=== PATIENT | female | born 1955 | race Caucasian/White ===

== ENCOUNTER 2016-09-02 05:31 | Inpatient (IN) | payer OTHER ==
[2016-09-01 17:05] VITALS: BMI 47.7
[2016-09-02] VITALS (11 sets, daily range): BP systolic 98–133; BP diastolic 56–86; PULSE 70–88; RESP 12–21; Ht 162.6 cm; Wt 56.1 kg
[~2016-09-02] VITALS: Ht 162.6 cm; Wt 56.1 kg
[~2016-09-02 05:31] MED LIST: ACET500C5 PO; IBUP-1542 PO; TIZA2TAB PO; [UNRECOGNIZED DRUG - CODE] BC
[2016-09-02] MEDS ORDERED: CEFAZOLIN 2 GM/50 ML (PMX) 50 ML IVPB ONE (06:46)
--- NOTE | 2016-09-02 07:38 | HPN ---
Date/Time of Note Date/Time of Note DATE: 09/02/16 TIME: 07:38 Interval H&P Admission Note Pt. seen H&P reviewed: No system changes BEN NICHOLE MD Sep 02, 2016 07:38
[2016-09-02] MEDS ORDERED: BUPIVACAINE 0.25% (MPF) 30 ML INJ ONE (07:50)
[2016-09-02] MEDS ORDERED: CA CHLORIDE 10% 10 ML SYRINGE ONE (07:50)
[2016-09-02] MEDS ORDERED: BUPIVACAINE 0.25%/EPI (SDV) 30 ML INJ ONE (07:50)
[2016-09-02] MEDS ORDERED: POLYMYXIN/BACITRACIN 1L IRRIG ONE (07:50)
[2016-09-02] MEDS ORDERED: THROMBIN 5000 UNIT VIAL ONE ×5 (07:50→12:05)
[2016-09-02] MEDS ORDERED: FENTAnyl 50 MCG/ML VIAL ONE ×3 (08:17→11:36)
[2016-09-02] MEDS ORDERED: MIDAZOLAM 1 MG/ML 2 ML INJ ONE ×2 (08:17→14:45)
[2016-09-02] MEDS ORDERED: HEPARIN 1000 UNITS/ML 10 ML INJ ONE (08:17)
[2016-09-02] MEDS ORDERED: CEFAZOLIN 1 GM INJ ONE ×3 (08:36→11:01)
[2016-09-02] MEDS ORDERED: BUPIVACAINE 0.25%/EPI (SDV) 30 ML INJ INJ ONE (08:52)
[2016-09-02] MEDS ORDERED: NEOSTIGMINE 3 MG/3 ML SYRINGE ONE (09:01)
[2016-09-02] MEDS ORDERED: ROCURONIUM 50 MG INJ ONE (09:01)
[2016-09-02] MEDS ORDERED: SUCCINYLCHOLINE CHLORIDE 100 MG/5 ML SYG IV ONE (09:01)
[2016-09-02] MEDS ORDERED: PROPOFOL 40 ML ONE (09:01)
[2016-09-02] MEDS ORDERED: GLYCOPYRROLATE 1 MG INJ ONE (09:02)
[2016-09-02] MEDS ORDERED: LIDOCAINE 2% (SDV) 5 ML INJ ONE (09:02)
[2016-09-02] MEDS ORDERED: HEMOSTATIC MATRIX SYG ZFS ONE ×3 (09:12→10:52)
[2016-09-02] MEDS ORDERED: THROMBIN 5000 UNIT VIAL TOP ONE ×3 (09:12→10:52)
[2016-09-02] MEDS ORDERED: MEPERIDINE 25 MG INJ IV PRN ×2 (09:30→13:30)
[2016-09-02] MEDS ORDERED: HYDROmorphONE (0.2 MG/ML) 10ML SYG IV PRN ×6 (09:30→13:30)
[2016-09-02] MEDS ORDERED: ALBUTEROL 0.5% (NEB) 2.5 MG/0.5 ML AMP INH ONE ×2 (09:30→13:30)
[2016-09-02] MEDS ORDERED: DIPHENHYDRAMINE 50 MG INJ IV PRN ×2 (09:30→13:30)
[2016-09-02] MEDS ORDERED: FENTAnyl 50 MCG/ML VIAL IV PRN ×3 (09:30→13:30)
[2016-09-02] MEDS ORDERED: METOCLOPRAMIDE 10 MG INJ IV PRN ×2 (09:30→13:30)
[2016-09-02] MEDS ORDERED: ONDANSETRON 4 MG INJ IV PRN ×3 (09:30→13:30)
[2016-09-02] MEDS ORDERED: BUPIVACAINE 0.25% (MPF) 10 ML 10 ML VIAL ONE (11:35)
[2016-09-02] MEDS ORDERED: IOHEXOL 300MG/ML 30 ML BTL ONE (11:36)
[2016-09-02] MEDS ORDERED: IOHEXOL 300MG/ML 30 ML BTL INJ ONE (12:17)
[2016-09-02] MEDS ORDERED: BUPIVACAINE 0.25% (MPF) 30 ML INJ INJ ONE (12:22)
[2016-09-02] MEDS ORDERED: PROCHLORPERAZINE 10 MG INJ IV PRN (12:30)
[2016-09-02] MEDS ORDERED: HYDROmorphONE 0.2 MG/ML PCA IV SCH ×2 (12:30→16:30)
[2016-09-02] MEDS ORDERED: MAGNESIUM HYDROXIDE 30ML CUP PO PRN (12:30)
[2016-09-02] MEDS ORDERED: CEPASTAT LOZENGE MT PRN (12:30)
[2016-09-02] MEDS ORDERED: BISACODYL 10 MG SUPP PR PRN (12:30)
[2016-09-02] MEDS ORDERED: NALOXONE (0.4 MG/ML) INJ IV PRN (12:30)
--- NOTE | 2016-09-02 13:06 | OPPN ---
Date/Time of Note Date/Time of Note DATE: 09/02/16 TIME: 13:04 Operative/Procedure Note Pre-Operative Diagnosis L4-S1 stenosis and degen. disc disease Post-Operative Diagnosis same Procedure L4-S1 posterior central decompression and instrumented fusion Surgeon: BEN NICHOLE MD Anesthesiologist: CHANTALE LOVE Findings see note Blood Usage/Administration cell saver 300cc Implants/Grafts ortho fix Benvenue Izabella [place] PRP Estimated blood loss: 250 - 300 ml's Drains lumbar hemovac Specimens L4-S1 disc Complications: None Anesthesia type: general BEN NICHOLE MD Sep 02, 2016 13:06
--- NOTE | 2016-09-02 14:14 | RADRPT ---
PROCEDURE: Intraoperative imaging of the lumbar spine with fluoroscopy. CLINICAL INDICATION: Back pain. Intraoperative. TECHNIQUE: 25 images of the lumbar spine were obtained in the operating room with an image intensi fier. No radiologist was in attendance. 45.6 seconds of fluoroscopy time was used. COMPARISON: No prior study is available for comparison. FINDINGS: For the purposes of this report, the last apparent true disc level is considered to be L5-S1. Based on this, final images demonstrate posterior fusion with pedicle screws and connecting rods at L4, L 5, and S1. Intervertebral cages are present at L4-5 and L5-S1. IMPRESSION: 1. Intraoperative imaging of the lumbar spine. RPTAT: QQ .Ghanshyam Raphael MD, MD Date Time Electronically viewed and signed by .Ghanshyam Raphael MD, on 09/02/2016 14:14 .R/
--- NOTE | 2016-09-02 14:22 | OPR ---
DATE OF OPERATION: 09/02/2016 PREOPERATIVE DIAGNOSIS: L4-5 and L5-S1 severe central stenosis with degenerative disk disease and a nterolisthesis at L4-5 and retrolisthesis at L5-S1. POSTOPERATIVE DIAGNOSIS: L4-5 and L5-S1 severe central stenosis with degenerative disk disease and anterolisthesis at L4-5 and retrolisthesis at L5-S1. PROCEDURES PERFORMED: 1. L4-L5 central decompressive laminectomy with decompression of the exiting L4 traversing L5 nerve root. 2. L5-S1 central decompressive laminectomy with decompression of the exiting L5 and traversing S1 n erve root. 3. Removal of the L4 and L5 spinous processes for the central decompressive laminectomy. 4. Complete facetectomy and foraminotomy at L4-5 and L5-S1 above and beyond the need for fusion for the purpose of decompression and diskectomy. 5. End plate preparation at L4-5 and L5-S1 for fusion. 6. Placement of interbody Benvenue Izabella cages at L4-5 and L5-S1. 7. Placement of interbody biomechanical device with bone graft using Fibergraft. 8. Both levels L4-5 and L5-S1 were fitted with Benvenue Izabella interbody cages. 9. Placement of pedicle screws at L4, L5, and S1 bilaterally under direct visualization. 10. Placement of pre-lordotic rods from L4-S1. 11. Cross connector of the parallel rods. 12. Epidural pain medication with epidural catheter with 4 mL of 0.25% Marcaine and 100 mcg of fent anyl, catheter removed. 13. Epidurogram after catheter placed for epidural placement under lateral localizing film, verifyi ng proper position after Isovue installation and removal of catheter after injection of medication. 14. Bilateral posterolateral bone grafting in the most posterolateral gutters after high-speed bur decortication. 15. Use of intraoperative fluoroscopy for localization and placement of instrumentation and epiduro gram. 16. Use of intraoperative microscope for microdissection. 17. Use of intraoperative fluoroscopy. 18. Use of intraoperative neuromonitoring for bilateral upper and lower extremities as well as lumb ar nerve roots and spinal cord during the entire surgical procedure with SSEPs, MEPs, and EMGs. 19. Placement of subfascial Hemovac drain. 20. Placement of Ramos catheter. SURGEON: Al Mahmood MD FISH AGENT: BRIGITTE Desouza ANESTHESIOLOGIST: Don Michael MD FINDINGS: At the start of surgical procedures, it was noted that the patient had nerve root signals down in amplitude at the left L4 down 20%, right L4 down 50%, right L5 down 30%, left S1 down 30%, right S1 down 50% and returned back to normal symmetric to the contralateral side at the conclusion of the procedure. BLOOD USAGE: CellSaver retrieved 300 mL which was processed and reinfused. IMPLANTS: Ortho fix screws and rods, Benvenue Izabella cages with a 12 mm lordotic at the L5-S1 level a nd a 10 mm straight cage at the L4-5 level. NuShield amniotic barrier and platelet-rich plasma, ort ho OsteoSponge, and Fibergraft bone graft. ESTIMATED BLOOD LOSS: Approximately 300 mL. DRAINS: Lumbar Hemovac. SPECIMENS: L4-L5 disk material and L5-S1 disk material sent together. COMPLICATIONS: None. ANESTHESIA: General. BRIEF PREOPERATIVE HISTORY: The patient is a 60-year-old female who presented with significant symp toms of bilateral lower extremity radiating pain, neuro claudication, difficulty ambulating, and low back pain. The patient had failed conservative management and was indicated for surgery as stated above. All risks, benefits and alternatives of surgical procedure was discussed with her at length. The patient understood the plan and consented to surgery as stated above. OPERATION DETAIL: The patient brought to the operating room, placed under anesthesia by Dr. Lilian woods, given 2 grams of Ancef. The patient was then turned prone on a Fantasma frame and all bony promin ences were appropriately padded. Lumbar Fantasma frame was elevated to decrease the lumbar lordotic c urvature. An incision line was marked out on the skin, and after the patient was prepped and draped in the usual sterile fashion, we placed 2 spinal needles for AP and lateral localization for the L4 -5 and L5-S1 level procedure. We started with removal of spinous processes of L4 and L5 after verifying proper level, and then per formed bilateral decompressive laminectomies and a central decompressive laminectomy for removal of compression of the thecal sac at L4-5 and L5-S1 as well as the exiting nerve roots at L4, traversing nerve root at L5, and at the L5-S1 decompression exiting L5 and traversing S1 nerve root. Once completed with our central decompressive laminectomy, we performed facetectomies and foraminoto mies at L4-5 and L5-S1 on the right side above and beyond the need for fusion for the purpose of dec ompression of the nerve roots. Once this was done, we did complete diskectomies at L4-5 and L5-S1 f or purpose of fusion. Endplates were appropriately decorticated. Endplate preparation and placemen t of Benvenue Izabella cages of 10 mm at the L4-5 level and 12 mm lordotic at the L5-S1 level and filled with Fibergraft bone graft. This was done under x-ray guidance and proper templating. Once completed with our placement of interbody cages, we started placing our screws at L4, L5, and S 1 bilaterally measuring 5.5 x 35 mm and at some levels only 30 mm in length. Once completed, we stimulated the screws verifying proper placement and no impingement on the jean sing and exiting nerve roots. Once concluded with placement of the screws, we verified proper position on AP and lateral fluorosco py and then placed pre-lordotic rods measuring 65 mm bilaterally and his cross connector that was to rqued to appropriate strength as well as the screws torqued to the appropriate strength for the end caps holding the rods. Once concluded with the procedure, we placed an epidural catheter, injected with Isovue on a lateral localizing film verifying proper position of the epidural catheter and epidurogram injected with 4 mL of 0.25% Marcaine and 100 mcg of fentanyl and removed the catheter. We placed bilateral posterolateral bone grafting after high-speed bur decortication of the transvers e processes with OsteoSponge. Platelet-rich plasma was achieved from the bone marrow aspiration from the iliac crest and that was used with bone graft was used in the posterolateral gutters as well as within the interbody space. Once concluded with placement of instrumentation and verifying proper position, we copiously irrigat ed and placed a NuShield barrier on the thecal sac, and then placed a subfascial Hemovac drain and s ecured down with the 2-0 nylon. We verified proper position on the AP and lateral fluoroscopy for a ll the implants, and we began with our closure over a Hemovac drain. We closed the fascia with #1 V icryl, 2-0 Vicryl for the subcutaneous skin, and running 4-0 Monocryl with the Dermabond and clean a nd dry dressing placed over the incision line. The patient was turned supine onto her hospital bed, taken to recovery room in stable condition, mov ing her lower extremities, and will be transferred to the floor once stable and admitted for postop pain control, physical therapy, antibiotics, and discharged either home or to a nursing facility whe n stable. Dictated By: AL GARCIA/LESLYE Conf#: [id number] DID#: [id number]
[2016-09-02] MEDS: DIPHENHYDRAMINE 50 MG INJ IV PRN ×2 (14:25→23:00)
[2016-09-02] MEDS ORDERED: DIPHENHYDRAMINE 50 MG INJ IV ONE (14:30)
[2016-09-02] MEDS: CEFAZOLIN 1 GM/50 ML (PMX) 50 ML IVPB SCH ×2 (14:31→19:36)
[2016-09-02] MEDS ORDERED: MIDAZOLAM 1 MG/ML 2 ML INJ IV PRN (15:00)
[2016-09-02] MEDS: CYCLOBENZAPRINE 10 MG TAB PO PRN (15:38)
--- NOTE | 2016-09-02 15:56 | CONS ---
DATE OF ADMISSION: 09/02/2016 DATE OF CONSULTATION: 09/02/2016 REQUESTING PHYSICIAN: BEN NICHOLE MD. REASON FOR CONSULTATION: Medical management. HISTORY OF PRESENT ILLNESS: This is a 60-year-old female with past medical history of COPD, nicotin e dependency, hysterectomy and foreign body removal from her wrist who presented with significant bi lateral lower extremity radiating pain neural claudication and difficulty ambulating lower back. Th e patient has failed conservative management and was indicated for surgery as per orthopedic surgeon today on 09/02/2016. The patient was admitted to [facility] for elective L4-L5 c entral decompressive laminectomy with decompression of the exiting L5 nerve root. The patient guru ated the procedure well and was taken to recovery room, although at this time, the patient continues to have chills and tremors. She denies any fever, chills, weight gain, weight loss, anorexia. No chest pain, palpitations, edema, orthopnea. No change in visual acuity, diplopia or photophobia. N o abdominal pain, nausea, vomiting, diarrhea. Patient states that this has occurred to her before w hen she has received Reglan, although she has never received Reglan during this course of hospitaliz ation or prior to surgery. The patient denies having any other discomfort. PAST MEDICAL AND SURGICAL HISTORY: As above per HPI. MEDICATIONS: 1. Tylenol. 2. ____ 3. ____ 4. Tizanidine. ALLERGIES: GABAPENTIN AND REGLAN. SOCIAL HISTORY: Positive for history of smoking 1 to 2 cigarettes per day. She used to smoke half pack a day. No alcohol, no illicit drugs. REVIEW OF SYSTEMS: As above per HPI, otherwise 12 review of systems has been found to be negative. PHYSICAL EXAMINATION: VITAL SIGNS: Temperature 98.1, pulse 18, respirations 133/85, oxygen saturation 99% on room air. GENERAL APPEARANCE: Patient is lying in the bed comfortably without any acute distress. She is perry ke, alert, oriented. She is able to answer my questions properly. She is having some spasticity an d essential tremors. EYES AND ENT: Conjunctivae and lids are normal. Pupils are normal. Extraocular normal. Hearing g rossly normal. Lips and tongue are normal. Oral mucosa is moist. NECK: Supple. Trachea is midline. No lymphadenopathy. RESPIRATORY: Effort is normal. Clear to auscultate bilaterally. CARDIOVASCULAR: Normal S1, S2. Regular rhythm and rate. No murmur, no bruits, no edema. Peripher al pulses and radial pulses palpable. Cap refill is normal. CHEST: Normal expansion of thorax during inspiration. GASTROINTESTINAL: Abdomen is soft, nontender, not distended. Bowel sounds present. No guarding, n o rebound. GENITOURINARY: A Ramos in place. Lumbosacral surgical site is dry and clean. There is a drain in place. MUSCULOSKELETAL: Upper and lower extremities within normal limits. Full range of motion. NEUROLOGIC: Cranial nerves II through XII are grossly intact. PSYCHIATRIC: She is awake, alert, oriented. LABORATORY WORK AND IMAGING: Pending. Today labs from patient: Hematocrit 43.8, hemoglobin 14.9, M CV 100.9, WBC 8.2, potassium 4.2, sodium 138, BUN 11, glucose 70, GFR 112, creatinine 0.67, chloride 103, bicarbonate 21, calcium 9.1. ASSESSMENT AND PLAN: 1. L4-L5 and L5-S1 severe central stenosis with degenerative disk disease and anterolisthesis at L4 -L5 and retrolisthesis at L5-S1. The patient is status post L4-L5, central decompressive laminectom y at L5-S1. 2. Central decompressive laminectomy with decompression. Continue postop care. Continue pain medi cation, PT, OT evaluate and treat. 3. L5-S1 central decompressive laminectomy with decompression. Continue post-surgical care. Bet[place] nue pain medication. Continue drain care. PT, OT evaluate and treat. 3. History of chronic obstructive pulmonary disease. The patient will be placed on breathing treat ment. 4. History of nicotine dependency on nicotine patch. 5. Specificity: Restart patient's home medication: Tizanidine. 6. For deep venous thrombosis prophylaxis on sequential compression devices. 7. For gastrointestinal prophylaxis on proton pump inhibitor. Dictated By: LUCILA SANDERS/LESLYE Conf#: [id number] DID#: [id number]
[2016-09-02] MEDS: D5W-0.45 NACL + KCL 20 MEQ 1,000 ML IV SCH (16:39)
[2016-09-02] MEDS: DIAZEPAM 5 MG TAB PO PRN (16:39)
[2016-09-02 17:57] LABS: ADD SCAN DIFF NO
[2016-09-02 17:59] LABS: BASOPHILS % 0.1 % (0.0-2.0); EOSINOPHILS % 0.5 % (0.0-7.0); HEMATOCRIT 33.6 % (37.0-47.0); HEMOGLOBIN 11.6 g/dl (12.0-16.0); LYMPHOCYTES # 1.5 10^3/ul (0.8-2.9); LYMPHOCYTES % 17.5 % (15.0-51.0); MEAN CORPUSCULAR HEMOGLOBIN 34.8 pg (29.0-33.0); MEAN CORPUSCULAR HGB CONC 34.5 g/dl (32.0-37.0); MEAN CORPUSCULAR VOLUME 100.9 fl (82.0-101.0); MEAN PLATELET VOLUME 9.7 fl (7.4-10.4); MONOCYTE # 0.6 10^3/ul (0.3-0.9); MONOCYTES % 6.9 % (0.0-11.0); NEUTROPHIL # 6.4 10^3/ul (1.6-7.5); NEUTROPHILS % 74.2 % (39.0-77.0); PLATELET COUNT 175 10^3/UL (140-415); RED BLOOD COUNT 3.33 10^6/ul (4.20-5.40); RED CELL DISTRIBUTION WIDTH 11.8 % (11.5-14.5); WHITE BLOOD COUNT 8.6 10^3/ul (4.8-10.8)
[2016-09-02] MEDS: HYDROmorphONE 1 MG/ML SYG IV PRN ×2 (18:11→22:40)
[2016-09-02 18:19] LABS: POTASSIUM 3.8 mmol/L (3.5-5.1)
[2016-09-02 18:22] LABS: CREATININE 0.67 mg/dl (0.44-1.00)
[2016-09-02 18:23] LABS: CALCIUM 8.3 mg/dl (8.4-10.2)
[2016-09-02] MEDS: TIZANIDINE 2 MG TAB PO PRN (21:08)
[2016-09-02] MEDS: DOCUSATE SODIUM 100 MG CAP PO SCH (21:08)
[2016-09-03 00:03] VITALS: BP 103/55; RESP 24
[2016-09-03] MEDS: CYCLOBENZAPRINE 10 MG TAB PO PRN (00:07)
[2016-09-03] MEDS: DIAZEPAM 5 MG TAB PO PRN ×3 (00:43→17:37)
[2016-09-03] MEDS: HYDROmorphONE 1 MG/ML SYG IV PRN ×4 (02:09→22:51)
[2016-09-03] MEDS: D5W-0.45 NACL + KCL 20 MEQ 1,000 ML IV SCH ×2 (02:09→17:06)
[2016-09-03] MEDS: CEFAZOLIN 1 GM/50 ML (PMX) 50 ML IVPB SCH (04:15)
[2016-09-03] MEDS: TIZANIDINE 2 MG TAB PO PRN ×2 (04:16→15:46)
[2016-09-03 05:12] LABS: ADD SCAN DIFF NO; BASOPHILS % 0.2 % (0.0-2.0); EOSINOPHILS # 0.3 10^3/ul (0.0-0.5); EOSINOPHILS % 3.4 % (0.0-7.0); HEMATOCRIT 34.2 % (37.0-47.0); HEMOGLOBIN 11.4 g/dl (12.0-16.0); LYMPHOCYTES # 2.2 10^3/ul (0.8-2.9); LYMPHOCYTES % 24.5 % (15.0-51.0); MEAN CORPUSCULAR HEMOGLOBIN 34.3 pg (29.0-33.0); MEAN CORPUSCULAR HGB CONC 33.3 g/dl (32.0-37.0); MEAN PLATELET VOLUME 10.5 fl (7.4-10.4); MONOCYTE # 0.9 10^3/ul (0.3-0.9); MONOCYTES % 10.4 % (0.0-11.0); NEUTROPHIL # 5.4 10^3/ul (1.6-7.5); PLATELET COUNT 176 10^3/UL (140-415); RED BLOOD COUNT 3.32 10^6/ul (4.20-5.40); RED CELL DISTRIBUTION WIDTH 11.9 % (11.5-14.5); WHITE BLOOD COUNT 8.8 10^3/ul (4.8-10.8)
[2016-09-03] MEDS: DIPHENHYDRAMINE 50 MG INJ IV PRN (05:23)
[2016-09-03 05:32] LABS: CREATININE 0.6 mg/dl (0.44-1.00)
[2016-09-03 05:33] LABS: CALCIUM 8.1 mg/dl (8.4-10.2); MAGNESIUM 1.9 mg/dl (1.7-2.5)
[2016-09-03 05:54] VITALS: BP 112/58; PULSE 95; RESP 18
[2016-09-03] MEDS ORDERED: PANTOPRAZOLE 40 MG INJ IV SCH (06:00)
[2016-09-03 07:48] VITALS: BP 95/53; RESP 18
[2016-09-03] MEDS: DOCUSATE SODIUM 100 MG CAP PO SCH ×2 (08:57→20:24)
[2016-09-03] MEDS: NICOTINE (14 MG/24 HR) PATCH TRANSDERM SCH (09:00)
[2016-09-03] MEDS ORDERED: HYDROCODONE/APAP (5/325) TAB PO PRN ×2 (09:00)
--- NOTE | 2016-09-03 10:48 | PN ---
Date/Time of Note Date/Time of Note DATE: 09/03/16 TIME: 10:43 Assessment/Plan VTE Prophylaxis VTE Prophylaxis Intervention: SCD's Lines/Catheters IV Catheter Type (from Nrs): Peripheral IV Urinary Cath still in place: No Assessment/Plan Chief Complaint/Hosp Course ASSESSMENT AND PLAN: 1. L4-L5 and L5-S1 severe central stenosis with degenerative disk disease . The patient is status post L4-L5 & L5-S1 Central decompressive laminectomy with decompression Continue postop care. Continue pain medication, PT, OT evaluate and treat. 2. History of chronic obstructive pulmonary disease. The patient will be placed on breathing treatment. 3. History of nicotine dependency on nicotine patch. 4. Specificity: Restart patient's home medication: Continue tizanidine and Valium -. For deep venous thrombosis prophylaxis on sequential compression devices. - For gastrointestinal prophylaxis on Pepcid We will continue monitor patient closely for recommendation management treatment as clinical course Disposition as per orthopedic surgeon Problems: Subjective 24 Hr Interval Summary Free Text/Dictation No acute event since this morning Patient denies of having any tremors or muscle spasm Complains of having low back pain Tolerating oral intake Exam/Review of Systems Vital Signs Vitals Vital Signs Date Time Temp Pulse Resp B/P Pulse Ox O2 Delivery O2 Flow Rate FiO2 09/03/16 07:48 98.9 85 18 95/53 100 09/03/16 05:54 Nasal Cannula 2.0 Intake and Output 09/02/16 09/02/16 09/03/16 15:00 23:00 07:00 Intake Total 1000 ml 1170 ml Output Total 470 ml 535 ml 1230 ml Balance 530 ml -535 ml -60 ml Exam General: The patient is well-developed, Not in acute distress. HEENT: Atraumatic, normocephalic. The pupils are equal and round . Neck: Supple with full range of motion. Chest: Normal expansion of the thorax during inspiration Lungs: Clear to auscultation bilaterally Heart: Normal S1-S2, Regular rhythm and rate. Abdomen: Soft , nontender, nondistended , bowel sounds are present. Extremities: Normal to inspection, no edema no cyanosis Neurologic: Normal mental status,The patient is awake, alert and oriented . Lumbosacral: Surgical site is dry and clean drain in place, no evidence of hematoma Results Result Diagram: 09/03/1642009/03/16420 Results 24 hrs Laboratory Tests Test 09/02/16 17:50 09/03/16 04:21 Anion Gap 11 13 Basophils # 0.0 0.0 Basophils % 0.1 0.2 Blood Urea Nitrogen 11 8 Calcium Level 8.3 L 8.1 L Carbon Dioxide Level 28 25 Chloride Level 105 104 Creatinine 0.67 0.60 Eosinophils # 0.0 0.3 Eosinophils % 0.5 3.4 Glucose Level 120 87 Hematocrit 33.6 L 34.2 L Hemoglobin 11.6 L 11.4 L Lymphocytes # 1.5 2.2 Lymphocytes % 17.5 24.5 Mean Corpuscular Hemoglobin 34.8 H 34.3 H Mean Corpuscular Hemoglobin Concent 34.5 33.3 Mean Corpuscular Volume 100.9 103.0 H Mean Platelet Volume 9.7 10.5 H Monocytes # 0.6 0.9 Monocytes % 6.9 10.4 Neutrophils # 6.4 5.4 Neutrophils % 74.2 61.0 Nucleated Red Blood Cells # 0.0 0.0 Nucleated Red Blood Cells % 0.0 0.0 Platelet Count 175 176 Potassium Level 3.8 4.0 Red Blood Count 3.33 L 3.32 L Red Cell Distribution Width 11.8 11.9 Sodium Level 140 138 White Blood Count 8.6 8.8 Magnesium Level 1.9 Medications Medications Current Medications Potassium Chloride/Dextrose/ Sod Cl (D5-1/2ns + KCl 20 Meq) 1,000 ml @ 70 mls/ hr [id number] IV Last administered on 09/03/16 02:09; Admin Dose 70 MLS/HR; Start 09/02/16 at 12:30 Acetaminophen/ Hydrocodone Bitart ([place] (5/325)) 1 tab Q4H PRN PO PAIN LEVEL 1 -5; Start 09/03/16 at 09:00 Acetaminophen/ Hydrocodone Bitart ([place] (5/325)) 2 tab Q4H PRN PO PAIN LEVEL 6 -10; Start 09/03/16 at 09:00 Hydromorphone HCl (Dilaudid) 0.5 mg Q3 PRN IV BREAKTHROUGH PAIN Last administered on 09/03/16 06:36; Admin Dose 0.5 MG; Start 09/02/16 at 12:30 Ondansetron HCl (Zofran Inj) 4 mg Q6H PRN IV NAUSEA AND/OR VOMITING; Start 04/11 at 12:30 Prochlorperazine (Compazine Inj) 10 mg Q6H PRN IV NAUSEA AND/OR VOMITING; Start 09/02/16 at 12:30 Bisacodyl (Dulcolax Supp) 10 mg DAILY PRN IN CONSTIPATION; Start 09/02/16 at 12 :30 Docusate Sodium (Colace) 100 mg BID PO Last administered on 09/03/16 08:57; Admin Dose 100 MG; Start 09/02/16 at 21:00 Pantoprazole (Protonix Iv) 40 mg DAILY@06 IV Last administered on 09/03/16 05: 23; Admin Dose 40 MG; Start 09/03/16 at 06:00 Magnesium Hydroxide (Milk Of Mag) 30 ml HS PRN PO CONSTIPATION/DYSPEPSIA; Start 09/02/16 at 12:30 Acetaminophen (Tylenol Tab) 650 mg Q4H PRN PO POSADA OR TEMP GREATER THAN 101.3F; Start 09/02/16 at 12:30 Cyclobenzaprine HCl (Flexeril) 5 mg TID PRN PO MUSCLE SPASMS Last administered on 09/03/16 00:07; Admin Dose 5 MG; Start 09/02/16 at 12:30 Phenol (Cepastat Lozenge) 1 lozenge PRN PRN MT SORE THROAT; Start 09/02/16 at 12:30 Diphenhydramine HCl (Benadryl) 25 mg Q6H PRN IV ITCHING Last administered on 05:23; Admin Dose 25 MG; Start 09/02/16 at 12:30 Naloxone HCl (Narcan) 0.2 mg Q2M PRN IV RR 8 BREATHS/MIN OR LESS; Start at 12:30 Miscellaneous Information 1. Hold DRAPERY INSPECTOR at 1,000... DRAPERY INSPECTOR IV ; Start 09/02/16 at 08: 00 Tizanidine HCl (Zanaflex) 2 mg Q8H PRN PO SPASTICITY Last administered on 04:16; Admin Dose 2 MG; Start 09/02/16 at 12:30 Diphenhydramine HCl (Benadryl) 25 mg Q6H PRN PO ITCHING; Start 09/02/16 at 14: 30 Nicotine (Nicoderm 14 Mg/ 24hr) 1 patch DAILY TRANSDERM Last administered on 09:00; Admin Dose 1 PATCH; Start 09/03/16 at 09:00 Diazepam (Valium) 5 mg Q8H PRN PO ANXIETY Last administered on 09/03/16 08:57 ; Admin Dose 5 MG; Start 09/02/16 at 16:00 Hydromorphone HCl (Dilaudid DRAPERY INSPECTOR) DRAPERY INSPECTOR to be started in PACU Q4PCA IV Last administered on 09/03/16 00:41; Admin Dose 6 MG; Start 09/02/16 at 16:30 LUCILA TORRE MD Sep 03, 2016 10:48
--- NOTE | 2016-09-03 11:45 | PN ---
Date/Time of Note Date/Time of Note DATE: 09/03/16 TIME: 11:42 Assessment/Plan VTE Prophylaxis VTE Prophylaxis Intervention: ambulation, anti-embolic stocking VTE Contraindication Reason: bleeding Lines/Catheters IV Catheter Type (from Nrsg): Peripheral IV Urinary Cath still in place: No Assessment/Plan Assessment/Plan s/p L4-5, L5-S1 decompression and fusion Hailey started 10, 1-2 tabs Flexeril increased to 10mg PO TID DATA ENTRY ANALYST stolled SCD IS Hemovac still in H/H stable AFVSS PT for amb Brace arriving. Back pain, legs are good with motor/sensory Exam/Review of Systems Vital Signs Vitals Vital Signs Date Time Temp Pulse Resp B/P Pulse Ox O2 Delivery O2 Flow Rate FiO2 09/03/16 07:48 98.9 85 18 95/53 100 09/03/16 05:54 Nasal Cannula 2.0 Intake and Output 09/02/16 09/02/16 09/03/16 15:00 23:00 07:00 Intake Total 1000 ml 1170 ml Output Total 470 ml 535 ml 1230 ml Balance 530 ml -535 ml -60 ml Results Result Diagram: 09/03/16 0421 09/03/16 0421 Results 24 hrs Laboratory Tests Test 09/02/16 17:50 09/03/16 04:21 Anion Gap 11 13 Basophils # 0.0 0.0 Basophils % 0.1 0.2 Blood Urea Nitrogen 11 8 Calcium Level 8.3 L 8.1 L Carbon Dioxide Level 28 25 Chloride Level 105 104 Creatinine 0.67 0.60 Eosinophils # 0.0 0.3 Eosinophils % 0.5 3.4 Glucose Level 120 87 Hematocrit 33.6 L 34.2 L Hemoglobin 11.6 L 11.4 L Lymphocytes # 1.5 2.2 Lymphocytes % 17.5 24.5 Mean Corpuscular Hemoglobin 34.8 H 34.3 H Mean Corpuscular Hemoglobin Concent 34.5 33.3 Mean Corpuscular Volume 100.9 103.0 H Mean Platelet Volume 9.7 10.5 H Monocytes # 0.6 0.9 Monocytes % 6.9 10.4 Neutrophils # 6.4 5.4 Neutrophils % 74.2 61.0 Nucleated Red Blood Cells # 0.0 0.0 Nucleated Red Blood Cells % 0.0 0.0 Platelet Count 175 176 Potassium Level 3.8 4.0 Red Blood Count 3.33 L 3.32 L Red Cell Distribution Width 11.8 11.9 Sodium Level 140 138 White Blood Count 8.6 8.8 Magnesium Level 1.9 Medications Medications Current Medications Potassium Chloride/Dextrose/ Sod Cl (D5-1/2ns + KCl 20 Meq) 1,000 ml @ 70 mls/ hr [id number] IV Last administered on 09/03/16 02:09; Admin Dose 70 MLS/HR; Start 09/02/16 at 12:30 Acetaminophen/ Hydrocodone Bitart ([place] (5/325)) 1 tab Q4H PRN PO PAIN LEVEL 1 -5; Start 09/03/16 at 09:00 Acetaminophen/ Hydrocodone Bitart ([place] (5/325)) 2 tab Q4H PRN PO PAIN LEVEL 6 -10 Last administered on 09/03/16 10:47; Admin Dose 2 TAB; Start 09/03/16 at 09 :00 Hydromorphone HCl (Dilaudid) 0.5 mg Q3 PRN IV BREAKTHROUGH PAIN Last administered on 09/03/16 10:50; Admin Dose 0.5 MG; Start 09/02/16 at 12:30 Ondansetron HCl (Zofran Inj) 4 mg Q6H PRN IV NAUSEA AND/OR VOMITING; Start 04/11 at 12:30 Prochlorperazine (Compazine Inj) 10 mg Q6H PRN IV NAUSEA AND/OR VOMITING; Start 09/02/16 at 12:30 Bisacodyl (Dulcolax Supp) 10 mg DAILY PRN NE CONSTIPATION; Start 09/02/16 at 12 :30 Docusate Sodium (Colace) 100 mg BID PO Last administered on 09/03/16 08:57; Admin Dose 100 MG; Start 09/02/16 at 21:00 Magnesium Hydroxide (Milk Of Mag) 30 ml HS PRN PO CONSTIPATION/DYSPEPSIA; Start 09/02/16 at 12:30 Acetaminophen (Tylenol Tab) 650 mg Q4H PRN PO POSADA OR TEMP GREATER THAN 101.3F; Start 09/02/16 at 12:30 Cyclobenzaprine HCl (Flexeril) 5 mg TID PRN PO MUSCLE SPASMS Last administered on 09/03/16 00:07; Admin Dose 5 MG; Start 09/02/16 at 12:30 Phenol (Cepastat Lozenge) 1 lozenge PRN PRN MT SORE THROAT; Start 09/02/16 at 12:30 Naloxone HCl (Narcan) 0.2 mg Q2M PRN IV RR 8 BREATHS/MIN OR LESS; Start at 12:30 Miscellaneous Information 1. Hold DATA ENTRY ANALYST at 1,000... DATA ENTRY ANALYST IV ; Start 09/02/16 at 08: 00 Tizanidine HCl (Zanaflex) 2 mg Q8H PRN PO SPASTICITY Last administered on 04:16; Admin Dose 2 MG; Start 09/02/16 at 12:30 Diphenhydramine HCl (Benadryl) 25 mg Q6H PRN PO ITCHING; Start 09/02/16 at 14: 30 Nicotine (Nicoderm 14 Mg/ 24hr) 1 patch DAILY TRANSDERM Last administered on 09:00; Admin Dose 1 PATCH; Start 09/03/16 at 09:00 Diazepam (Valium) 5 mg Q8H PRN PO ANXIETY Last administered on 09/03/16 08:57 ; Admin Dose 5 MG; Start 09/02/16 at 16:00 Hydromorphone HCl (Dilaudid DATA ENTRY ANALYST) DATA ENTRY ANALYST to be started in PACU Q4PCA IV Last administered on 09/03/16 00:41; Admin Dose 6 MG; Start 09/02/16 at 16:30 Famotidine (Pepcid) 20 mg BID PO ; Start 09/03/16 at 21:00 BEN NICHOLE MD Sep 03, 2016 11:45
[2016-09-03] MEDS: DIPHENHYDRAMINE 25 MG CAP PO PRN ×2 (11:48→17:37)
[2016-09-03] MEDS ORDERED: VITAMIN A & D 5 GM OINT PACKET TOP ONE (11:51)
[2016-09-03] MEDS ORDERED: HYDROCODONE/APAP (10/325) TAB PO PRN (12:00)
[2016-09-03] MEDS: CYCLOBENZAPRINE 10 MG TAB PO SCH ×2 (13:17→20:24)
[2016-09-03] MEDS: HYDROCODONE/APAP (10/325) TAB PO PRN ×3 (13:18→21:21)
[2016-09-03 19:20] VITALS: BP 125/72; RESP 18
[2016-09-03] MEDS: FAMOTIDINE 20 MG TAB PO SCH (20:24)
[2016-09-04] MEDS: TIZANIDINE 2 MG TAB PO PRN ×2 (00:13→23:47)
[2016-09-04] MEDS: DIPHENHYDRAMINE 25 MG CAP PO PRN ×2 (00:13→08:38)
[2016-09-04] MEDS: HYDROCODONE/APAP (10/325) TAB PO PRN ×3 (01:24→09:38)
[2016-09-04] MEDS: DIAZEPAM 5 MG TAB PO PRN ×2 (05:36→18:37)
[2016-09-04] MEDS: D5W-0.45 NACL + KCL 20 MEQ 1,000 ML IV SCH ×2 (07:24→21:42)
[2016-09-04 08:13] VITALS: BP 105/55; RESP 20
[2016-09-04] MEDS: FAMOTIDINE 20 MG TAB PO SCH ×2 (08:37→21:04)
[2016-09-04] MEDS: DOCUSATE SODIUM 100 MG CAP PO SCH ×2 (08:37→21:04)
[2016-09-04] MEDS: CYCLOBENZAPRINE 10 MG TAB PO SCH ×3 (08:38→21:04)
[2016-09-04] MEDS: NICOTINE (14 MG/24 HR) PATCH TRANSDERM SCH (08:38)
--- NOTE | 2016-09-04 11:42 | PN ---
Date/Time of Note Date/Time of Note DATE: 09/04/16 TIME: 11:40 Assessment/Plan VTE Prophylaxis VTE Prophylaxis Intervention: SCD's Lines/Catheters IV C[facility] Type (from [facility] Saline Lock Urinary Cath still in place: No Assessment/Plan Chief Complaint/Hosp Course ASSESSMENT AND PLAN: 1. L4-L5 and L5-S1 severe central stenosis with degenerative disk disease . The patient is status post L4-L5 & L5-S1 Central decompressive laminectomy with decompression Continue postop care. Continue pain medication, PT, OT evaluate and treat. 2. History of chronic obstructive pulmonary disease. The patient will be placed on breathing treatment. 3. History of nicotine dependency on nicotine patch. 4. Specificity: Restart patient's home medication: Continue tizanidine and Valium -. For deep venous thrombosis prophylaxis on sequential compression devices. - For gastrointestinal prophylaxis on Pepcid We will continue monitor patient closely for recommendation management treatment as clinical course Disposition as per orthopedic surgeon Problems: Subjective 24 Hr Interval Summary Free Text/Dictation Denies of any chest pain or shortness of breath Continues to complain of having low back pain No weakness or numbness in lower extremity Exam/Review of Systems Vital Signs Vitals Vital Signs Date Time Temp Pulse Resp B/P Pulse Ox O2 Delivery O2 Flow Rate FiO2 09/04/16 08:13 98.4 88 20 105/55 91 09/03/16 05:54 Nasal Cannula 2.0 Intake and Output 09/03/16 09/03/16 09/04/16 15:00 23:00 07:00 Intake Total 1730 ml 1150 ml Output Total 1325 ml 1125 ml Balance 405 ml 25 ml Exam General: The patient is well-developed, Not in acute distress. HEENT: Atraumatic, normocephalic. The pupils are equal and round . Neck: Supple with full range of motion. Chest: Normal expansion of the thorax during inspiration Lungs: Clear to auscultation bilaterally Heart: Normal S1-S2, Regular rhythm and rate. Abdomen: Soft , nontender, nondistended , bowel sounds are present. Extremities: Normal to inspection, no edema no cyanosis Neurologic: Normal mental status,The patient is awake, alert and oriented . Lumbosacral: Surgical site is dry and clean, drain in place Results Result Diagram: 09/03/1642009/03/16420 Medications Medications Current Medications Potassium Chloride/Dextrose/ Sod Cl (D5-1/2ns + KCl 20 Meq) 1,000 ml @ 70 mls/ hr [id number] IV Last administered on 09/03/16 02:09; Admin Dose 70 MLS/HR; Start 09/02/16 at 12:30 Hydromorphone HCl (Dilaudid) 0.5 mg Q3 PRN IV BREAKTHROUGH PAIN Last administered on 09/03/16 22:51; Admin Dose 0.5 MG; Start 09/02/16 at 12:30 Ondansetron HCl (Zofran Inj) 4 mg Q6H PRN IV NAUSEA AND/OR VOMITING; Start 04/11 at 12:30 Prochlorperazine (Compazine Inj) 10 mg Q6H PRN IV NAUSEA AND/OR VOMITING; Start 09/02/16 at 12:30 Bisacodyl (Dulcolax Supp) 10 mg DAILY PRN [place] CONSTIPATION; Start 09/02/16 at 12 :30 Docusate Sodium (Colace) 100 mg BID PO Last administered on 09/04/16 08:37; Admin Dose 100 MG; Start 09/02/16 at 21:00 Magnesium Hydroxide (Milk Of Mag) 30 ml HS PRN PO CONSTIPATION/DYSPEPSIA; Start 09/02/16 at 12:30 Acetaminophen (Tylenol Tab) 650 mg Q4H PRN PO POSADA OR TEMP GREATER THAN 101.3F; Start 09/02/16 at 12:30 Phenol (Cepastat Lozenge) 1 lozenge PRN PRN [place] SORE THROAT; Start 09/02/16 at 12:30 Naloxone HCl (Narcan) 0.2 mg Q2M PRN IV RR 8 BREATHS/MIN OR LESS; Start at 12:30 Miscellaneous Information 1. Hold ABSTRACT MANAGER at 1,000... ABSTRACT MANAGER IV ; Start 09/02/16 at 08: 00 Tizanidine HCl (Zanaflex) 2 mg Q8H PRN PO SPASTICITY Last administered on 00:13; Admin Dose 2 MG; Start 09/02/16 at 12:30 Diphenhydramine HCl (Benadryl) 25 mg Q6H PRN PO ITCHING Last administered on 08:38; Admin Dose 25 MG; Start 09/02/16 at 14:30 Nicotine (Nicoderm 14 Mg/ 24hr) 1 patch DAILY TRANSDERM Last administered on 08:38; Admin Dose 1 PATCH; Start 09/03/16 at 09:00 Diazepam (Valium) 5 mg Q8H PRN PO ANXIETY Last administered on 09/04/16 05:36 ; Admin Dose 5 MG; Start 09/02/16 at 16:00 Hydromorphone HCl (Dilaudid ABSTRACT MANAGER) ABSTRACT MANAGER to be started in PACU Q4PCA IV Last administered on 09/03/16 00:41; Admin Dose 6 MG; Start 09/02/16 at 16:30; Status Future Hold Famotidine (Pepcid) 20 mg BID PO Last administered on 09/04/16 08:37; Admin Dose 20 MG; Start 09/03/16 at 21:00 Acetaminophen/ Hydrocodone Bitart ([place] (10/325)) 1 tab Q4H PRN PO PAIN LEVEL 4-6; Start 09/03/16 at 12:00; Status Future hold Acetaminophen/ Hydrocodone Bitart ([place] (10/325)) 2 tab Q4H PRN PO SEVERE PAIN LEVEL 7-10 Last administered on 09/04/16 09:38; Admin Dose 2 TAB; Start at 12:00; Status Future hold Cyclobenzaprine HCl (Flexeril) 10 mg TID PO Last administered on 09/04/16 08: 38; Admin Dose 10 MG; Start 09/03/16 at 13:00 LUCILA TORRE MD Sep 04, 2016 11:42
--- NOTE | 2016-09-04 12:18 | PN ---
Date/Time of Note Date/Time of Note DATE: 09/04/16 TIME: 12:15 Assessment/Plan VTE Prophylaxis VTE Prophylaxis Intervention: ambulation, anti-embolic stocking VTE Contraindication Reason: bleeding Lines/Catheters IV Catheter Type (from Nrsg): Saline Lock Urinary Cath still in place: No Assessment/Plan Chief Complaint/Hosp Course s/p lumbar fusion Problems: Assessment/Plan Pain control issue, otherwise ambulating Hemovac removed Wound CDI Evaluate for transfer to SNF, if so, transfer tomorrow [facility] [place] [facility] Ex[facility]/Review of Systems Vital Signs Vitals Vital Signs Date Time Temp Pulse Resp B/P Pulse Ox O2 Delivery O2 Flow Rate FiO2 09/04/16 08:13 98.4 88 20 105/55 91 09/03/16 05:54 Nasal Cannula 2.0 Intake and Output 09/03/16 09/03/16 09/04/16 15:00 23:00 07:00 Intake Total 1730 ml 1150 ml Output Total 1325 ml 1125 ml Balance 405 ml 25 ml Results Result Diagram: 09/03/16 0421 09/03/16 0421 Medications Medications Current Medications Potassium Chloride/Dextrose/ Sod Cl (D5-1/2ns + KCl 20 Meq) 1,000 ml @ 70 mls/ hr [id number] IV Last administered on 09/03/16 02:09; Admin Dose 70 MLS/HR; Start 09/02/16 at 12:30 Hydromorphone HCl (Dilaudid) 0.5 mg Q3 PRN IV BREAKTHROUGH PAIN Last administered on 09/03/16 22:51; Admin Dose 0.5 MG; Start 09/02/16 at 12:30 Ondansetron HCl (Zofran Inj) 4 mg Q6H PRN IV NAUSEA AND/OR VOMITING; Start 04/11 at 12:30 Prochlorperazine (Compazine Inj) 10 mg Q6H PRN IV NAUSEA AND/OR VOMITING; Start 09/02/16 at 12:30 Bisacodyl (Dulcolax Supp) 10 mg DAILY PRN [place] CONSTIPATION; Start 09/02/16 at 12 :30 Docusate Sodium (Colace) 100 mg BID PO Last administered on 09/04/16 08:37; Admin Dose 100 MG; Start 09/02/16 at 21:00 Magnesium Hydroxide (Milk Of Mag) 30 ml HS PRN PO CONSTIPATION/DYSPEPSIA; Start 09/02/16 at 12:30 Acetaminophen (Tylenol Tab) 650 mg Q4H PRN PO POSADA OR TEMP GREATER THAN 101.3F; Start 09/02/16 at 12:30 Phenol (Cepastat Lozenge) 1 lozenge PRN PRN [place] SORE THROAT; Start 09/02/16 at 12:30 Naloxone HCl (Narcan) 0.2 mg Q2M PRN IV RR 8 BREATHS/MIN OR LESS; Start at 12:30 Miscellaneous Information 1. Hold COAT CHECK ATTENDANT at 1,000... COAT CHECK ATTENDANT IV ; Start 09/02/16 at 08: 00 Tizanidine HCl (Zanaflex) 2 mg Q8H PRN PO SPASTICITY Last administered on 00:13; Admin Dose 2 MG; Start 09/02/16 at 12:30 Diphenhydramine HCl (Benadryl) 25 mg Q6H PRN PO ITCHING Last administered on 08:38; Admin Dose 25 MG; Start 09/02/16 at 14:30 Nicotine (Nicoderm 14 Mg/ 24hr) 1 patch DAILY TRANSDERM Last administered on 08:38; Admin Dose 1 PATCH; Start 09/03/16 at 09:00 Diazepam (Valium) 5 mg Q8H PRN PO ANXIETY Last administered on 09/04/16 05:36 ; Admin Dose 5 MG; Start 09/02/16 at 16:00 Hydromorphone HCl (Dilaudid COAT CHECK ATTENDANT) COAT CHECK ATTENDANT to be started in PACU Q4PCA IV Last administered on 09/03/16 00:41; Admin Dose 6 MG; Start 09/02/16 at 16:30; Status Future Hold Famotidine (Pepcid) 20 mg BID PO Last administered on 09/04/16 08:37; Admin Dose 20 MG; Start 09/03/16 at 21:00 Acetaminophen/ Hydrocodone Bitart ([place] (10/325)) 1 tab Q4H PRN PO PAIN LEVEL 4-6; Start 09/03/16 at 12:00; Status Future hold Acetaminophen/ Hydrocodone Bitart ([place] (10/325)) 2 tab Q4H PRN PO SEVERE PAIN LEVEL 7-10 Last administered on 09/04/16 09:38; Admin Dose 2 TAB; Start at 12:00; Status Future hold Cyclobenzaprine HCl (Flexeril) 10 mg TID PO Last administered on 09/04/16 08: 38; Admin Dose 10 MG; Start 09/03/16 at 13:00 BEN NICHOLE MD Sep 04, 2016 12:18
[2016-09-04] MEDS ORDERED: OXYCODONE/ACETAMINOPHEN (5/325) TAB PO PRN (12:30)
[2016-09-04] MEDS: OXYCODONE/ACETAMINOPHEN (5/325) TAB PO PRN ×3 (13:34→22:32)
[2016-09-04 20:00] VITALS: BP 114/56; RESP 21
[2016-09-04] MEDS: ACETAMINOPHEN 325 MG TAB PO PRN (23:49)
[2016-09-05] MEDS: OXYCODONE/ACETAMINOPHEN (5/325) TAB PO PRN ×3 (02:23→12:30)
[2016-09-05] MEDS: DIAZEPAM 5 MG TAB PO PRN ×2 (04:09→13:00)
[2016-09-05] MEDS: ACETAMINOPHEN 325 MG TAB PO PRN (05:31)
[2016-09-05 07:36] VITALS: BP 123/79; RESP 18
[2016-09-05] MEDS: DOCUSATE SODIUM 100 MG CAP PO SCH ×2 (09:00→20:56)
[2016-09-05] MEDS: FAMOTIDINE 20 MG TAB PO SCH ×2 (09:04→20:56)
[2016-09-05] MEDS: NICOTINE (14 MG/24 HR) PATCH TRANSDERM SCH (09:04)
[2016-09-05] MEDS: CYCLOBENZAPRINE 10 MG TAB PO SCH ×3 (09:04→20:56)
[2016-09-05] MEDS: TIZANIDINE 2 MG TAB PO PRN (09:05)
--- NOTE | 2016-09-05 10:48 | PN ---
Date/Time of Note Date/Time of Note DATE: 09/05/16 TIME: 10:46 Assessment/Plan VTE Prophylaxis VTE Prophylaxis Intervention: SCD's Lines/Catheters IV Catheter Type (from Nrs): Saline Lock Urinary Cath still in place: No Assessment/Plan Chief Complaint/Hosp Course ASSESSMENT AND PLAN: 1. L4-L5 and L5-S1 severe central stenosis with degenerative disk disease . The patient is status post L4-L5 & L5-S1 Central decompressive laminectomy with decompression Continue postop care. Continue pain medication, PT, OT evaluate and treat. 2. History of chronic obstructive pulmonary disease. The patient will be placed on breathing treatment. 3. History of nicotine dependency on nicotine patch. 4. Specificity: Restart patient's home medication: Continue tizanidine and Valium -. For deep venous thrombosis prophylaxis on sequential compression devices. - For gastrointestinal prophylaxis on Pepcid We will continue monitor patient closely for recommendation management treatment as clinical course manager [employer] consult for [facility] placement Disposition as per orthopedic surgeon Problems: Subjective 24 Hr Interval Summary Free Text/Dictation Patient continues to complain of having back pain No nausea vomiting diarrhea Tolerating oral intake Ambulating with moderate assist and walker Exam/Review of Systems Vital Signs Vitals Vital Signs Date Time Temp Pulse Resp B/P Pulse Ox O2 Delivery O2 Flow Rate FiO2 09/05/16 07:36 98.6 89 18 123/79 94 09/03/16 05:54 Nasal Cannula 2.0 Intake and Output 09/04/16 09/04/16 09/05/16 15:00 23:00 07:00 Intake Total 850 ml 550 ml Output Total 800 ml 700 ml Balance 50 ml -150 ml Exam General: The patient is well-developed, Not in acute distress. HEENT: Atraumatic, normocephalic. The pupils are equal and round . Neck: Supple with full range of motion. Chest: Normal expansion of the thorax during inspiration Lungs: Clear to auscultation bilaterally Heart: Normal S1-S2, Regular rhythm and rate. Abdomen: Soft , nontender, nondistended , bowel sounds are present. Extremities: Normal to inspection, no edema no cyanosis Neurologic: Normal mental status,The patient is awake, alert and oriented . Lumbosacral: Surgical site is dry and clean, drain has been removed Results Result Diagram: 09/03/1642009/03/16420 Medications Medications Current Medications Potassium Chloride/Dextrose/ Sod Cl (D5-1/2ns + KCl 20 Meq) 1,000 ml @ 70 mls/ hr [id number] IV Last administered on 09/03/16 02:09; Admin Dose 70 MLS/HR; Start 09/02/16 at 12:30 Hydromorphone HCl (Dilaudid) 0.5 mg Q3 PRN IV BREAKTHROUGH PAIN Last administered on 09/03/16 22:51; Admin Dose 0.5 MG; Start 09/02/16 at 12:30 Ondansetron HCl (Zofran Inj) 4 mg Q6H PRN IV NAUSEA AND/OR VOMITING; Start 04/11 at 12:30 Prochlorperazine (Compazine Inj) 10 mg Q6H PRN IV NAUSEA AND/OR VOMITING; Start 09/02/16 at 12:30 Bisacodyl (Dulcolax Supp) 10 mg DAILY PRN [place] CONSTIPATION Last administered on 09/04/16 13:35; Admin Dose 10 MG; Start 09/02/16 at 12:30 Docusate Sodium (Colace) 100 mg BID PO Last administered on 09/04/16 21:04; Admin Dose 100 MG; Start 09/02/16 at 21:00 Magnesium Hydroxide (Milk Of Mag) 30 ml HS PRN PO CONSTIPATION/DYSPEPSIA Last administered on 09/04/16 17:37; Admin Dose 30 ML; Start 09/02/16 at 12:30 Acetaminophen (Tylenol Tab) 650 mg Q4H PRN PO POSADA OR TEMP GREATER THAN 101.3F Last administered on 09/05/16 05:31; Admin Dose 650 MG; Start 09/02/16 at 12:30 Phenol (Cepastat Lozenge) 1 lozenge PRN PRN [place] SORE THROAT; Start 09/02/16 at 12:30 Naloxone HCl (Narcan) 0.2 mg Q2M PRN IV RR 8 BREATHS/MIN OR LESS; Start at 12:30 Miscellaneous Information 1. Hold HANSARD REPORTER at 1,000... HANSARD REPORTER IV ; Start 09/02/16 at 08: 00 Tizanidine HCl (Zanaflex) 2 mg Q8H PRN PO SPASTICITY Last administered on 09:05; Admin Dose 2 MG; Start 09/02/16 at 12:30 Diphenhydramine HCl (Benadryl) 25 mg Q6H PRN PO ITCHING Last administered on 08:38; Admin Dose 25 MG; Start 09/02/16 at 14:30 Nicotine (Nicoderm 14 Mg/ 24hr) 1 patch DAILY TRANSDERM Last administered on 09:04; Admin Dose 1 PATCH; Start 09/03/16 at 09:00 Diazepam (Valium) 5 mg Q8H PRN PO ANXIETY Last administered on 09/05/16 04:09 ; Admin Dose 5 MG; Start 09/02/16 at 16:00 Hydromorphone HCl (Dilaudid HANSARD REPORTER) HANSARD REPORTER to be started in PACU Q4PCA IV Last administered on 09/03/16 00:41; Admin Dose 6 MG; Start 09/02/16 at 16:30; Status Future Hold Famotidine (Pepcid) 20 mg BID PO Last administered on 09/05/16 09:04; Admin Dose 20 MG; Start 09/03/16 at 21:00 Cyclobenzaprine HCl (Flexeril) 10 mg TID PO Last administered on 09/05/16 09: 04; Admin Dose 10 MG; Start 09/03/16 at 13:00 Oxycodone/ Acetaminophen (Percocet (5/ 325)) 1 tab Q4H PRN PO PAIN LEVEL 1-5; Start 09/04/16 at 12:30 Oxycodone/ Acetaminophen (Percocet (5/ 325)) 2 tab Q4H PRN PO PAIN LEVEL 6-10 Last administered on 09/05/16 06:30; Admin Dose 2 TAB; Start 09/04/16 at 12:30 LUCILA TORRE MD Sep 05, 2016 10:48
[2016-09-05] MEDS: D5W-0.45 NACL + KCL 20 MEQ 1,000 ML IV SCH (12:00)
[2016-09-05] MEDS ORDERED: OXYCODONE/ACETAMINOPHEN (10/325) TAB PO PRN (14:00)
[2016-09-05] MEDS ORDERED: SOD CHLORIDE 0.9% 100 ML ONE (15:51)
[2016-09-05] MEDS ORDERED: IOHEXOL 300MG/ML 150 ML BTL ONE (15:52)
[2016-09-05] MEDS: HYDROmorphONE 1 MG/ML SYG IV PRN (16:17)
--- NOTE | 2016-09-05 18:09 | RADRPT ---
PROCEDURE: CT Lumbar Spine with contrast. CLINICAL INDICATION: Increasing low back pain with clinical concern for epidural collection nicole sing the thecal sac. TECHNIQUE: CT of the lumbar spine following the uneventful intravenous injection of 100 cc Omnipaq ue-300 contrast was performed. Axial images were obtained through the lumbar spine and reformatted at 2.5 mm slice thickness. Coronal and sagittal images were reformatted. The CTDIvol = 11.53 mGy an d DLP = 395.19 mGy-cm. Technical note: As the patient was unable to tolerate the supine position, scanning was performed i n a right lateral decubitus position COMPARISON: Intraoperative images dated 09/02/2016 FINDINGS: Vertebral bodies: An approximately 10-15 degrees dextroscoliosis is suggested with the apex at the L 3 level. Transpedicular screws with fusion hardware are present at L4, L5 and S1, the hardware in go od position. There is no fracture, subluxation, lytic or blastic lesion. Mild to moderate anterior spondylosis is present at L1-2, L2-3 and L3-4 Conus medularis region: Normal in attenuation and location terminating at the L1 level. T12-L1: No discogenic abnormality of significance is seen. There is no facet arthropathy. The centr al canal is patent. There is no evidence for foraminal stenosis. No pathologic enhancement is ident ified there is no evidence of epidural collection. L1-L2: Mild anterior spondylosis and mild asymmetric disk narrowing to the left is present with the 2 mm disk bulge but no protrusion. There is no facet arthropathy. The ligamentum flava are normal in thickness. The central canal is patent. There is minimal bilateral foraminal stenosis. No patholo gic enhancement is identified there is no evidence of epidural collection. L2-L3: Mild asymmetric disk space narrowing to the left with an annular disk bulge of approximately 3 mm. There is no facet arthropathy. The ligamentum flava are normal in thickness. The central wiley l is patent. There is mild left greater than right bilateral foraminal stenosis. No pathologic enh ancement is identified there is no evidence of epidural collection. L3-L4: Preservation of disk stature but an approximately 4 mm annular disk bulge asymmetric to the l eft. Severe bilateral facet arthropathy is present greater on the left with a grade 1 anterolisthesi s. The ligamentum flava are normal in thickness. The central canal is moderately narrowed, AP dimen boo of the thecal sac approximately 7 mm. There is moderate bilateral lateral recess and foraminal stenosis. No pathologic enhancement is identified there is no evidence of epidural collection. A sm all punctate focus of gas likely postoperative is seen lateral to the left facet joint L4-L5: Interbody graft is present and there are findings compatible with laminectomy. Partial right facet resection is noted, the left facet shows some vacuum phenomenon and moderate degenerative hernandez ge. There are punctate foci postoperative gas consistent with recent surgery but there is no central stenosis. No abnormal foci of enhancement are demonstrated, artifact from the surgical hardware sl ightly limits fine evaluation. There is no evidence for foraminal stenosis. L5-S1: Interbody graft is present and appears in good position. Partial right facet resection is not ed the left facet joint is moderately degenerated. Laminectomy changes are demonstrated, the transpe dicular screws appear in good position and without surrounding lucency. The central canal is patent . There is no evidence for foraminal stenosis. No pathologic enhancement is identified there is no evidence of epidural collection. Sacrum and sacroiliac joints: No abnormalities are identified, the joints are normal and symmetric. None spine related findings: Incidental splenic calcified granulomata and atherosclerotic calcificat ion of the abdominal aorta. RPTAT:HJJR IMPRESSION: 1. Laminectomy changes, interbody grafts and transpedicular fusion hardware at L4-5 and L5-S1 witho ut pathologic enhancement, epidural or paraspinal collections. The recent postoperative changes are within limits of normal for appearance. 2. Facet arthropathy, grade 1 anterolisthesis and bulging disk material asymmetric to the left at L3 -4 causes moderate central canal stenosis and left greater than right foraminal narrowing. 3. Asymmetric disk narrowing to the left and disk bulging at L2-3 with mild foraminal stenosis but no central canal narrowing. 4. Mild disk bulging asymmetric to the left at L1-2 without more than minimal foraminal stenosis. Physician Tabitha Date Time Electronically viewed and signed by Physician Tabitha on 09/05/2016 18:09 JR/
[2016-09-05] MEDS: OXYCODONE/ACETAMINOPHEN (10/325) TAB PO PRN (18:51)
[2016-09-05] MEDS: DEXAMETHASONE 10 MG/ML 1 ML INJ IV SCH (18:51)
--- NOTE | 2016-09-05 20:01 | PN ---
Date/Time of Note Date/Time of Note DATE: 09/05/16 TIME: 19:59 Assessment/Plan VTE Prophylaxis VTE Prophylaxis Intervention: ambulation, anti-embolic stocking VTE Contraindication Reason: bleeding Lines/Catheters IV Catheter Type (from Nrs): Saline Lock Urinary Cath still in place: No Assessment/Plan Chief Complaint/Hosp Course s/p lumbar fusion Problems: Assessment/Plan CT of L-spine w/IV contrast discussed with radiologist. No epidural collection. Well placed instrumentation Post-op radiculopathy most likely inflammatory Decadron 8mg IV x 1 oredered Hold transfer to SNF till tomorrow. Plan to transfer to SNF tomorrow am. Exam/Review of Systems Vital Signs Vitals Vital Signs Date Time Temp Pulse Resp B/P Pulse Ox O2 Delivery O2 Flow Rate FiO2 09/05/16 07:36 98.6 89 18 123/79 94 09/03/16 05:54 Nasal Cannula 2.0 Intake and Output 09/04/16 09/04/16 09/05/16 15:00 23:00 07:00 Intake Total 850 ml 550 ml Output Total 800 ml 700 ml Balance 50 ml -150 ml Results Result Diagram: 09/03/16 0421 09/03/16 0421 Medications Medications Current Medications Potassium Chloride/Dextrose/ Sod Cl (D5-1/2ns + KCl 20 Meq) 1,000 ml @ 70 mls/ hr [id number] IV Last administered on 09/03/16 02:09; Admin Dose 70 MLS/HR; Start 09/02/16 at 12:30 Hydromorphone HCl (Dilaudid) 0.5 mg Q3 PRN IV BREAKTHROUGH PAIN Last administered on 09/05/16 16:17; Admin Dose 0.5 MG; Start 09/02/16 at 12:30 Ondansetron HCl (Zofran Inj) 4 mg Q6H PRN IV NAUSEA AND/OR VOMITING; Start 04/11 at 12:30 Prochlorperazine (Compazine Inj) 10 mg Q6H PRN IV NAUSEA AND/OR VOMITING; Start 09/02/16 at 12:30 Bisacodyl (Dulcolax Supp) 10 mg DAILY PRN [place] CONSTIPATION Last administered on 09/04/16 13:35; Admin Dose 10 MG; Start 09/02/16 at 12:30 Docusate Sodium (Colace) 100 mg BID PO Last administered on 09/04/16 21:04; Admin Dose 100 MG; Start 09/02/16 at 21:00 Magnesium Hydroxide (Milk Of Mag) 30 ml HS PRN PO CONSTIPATION/DYSPEPSIA Last administered on 09/04/16 17:37; Admin Dose 30 ML; Start 09/02/16 at 12:30 Acetaminophen (Tylenol Tab) 650 mg Q4H PRN PO POSADA OR TEMP GREATER THAN 101.3F Last administered on 09/05/16 05:31; Admin Dose 650 MG; Start 09/02/16 at 12:30 Phenol (Cepastat Lozenge) 1 lozenge PRN PRN [place] SORE THROAT; Start 09/02/16 at 12:30 Naloxone HCl (Narcan) 0.2 mg Q2M PRN IV RR 8 BREATHS/MIN OR LESS; Start at 12:30 Miscellaneous Information 1. Hold AUTOMOTIVE COLLISION REPAIR INSTRUCTOR at 1,000... AUTOMOTIVE COLLISION REPAIR INSTRUCTOR IV ; Start 09/02/16 at 08: 00 Tizanidine HCl (Zanaflex) 2 mg Q8H PRN PO SPASTICITY Last administered on 09:05; Admin Dose 2 MG; Start 09/02/16 at 12:30 Diphenhydramine HCl (Benadryl) 25 mg Q6H PRN PO ITCHING Last administered on 08:38; Admin Dose 25 MG; Start 09/02/16 at 14:30 Nicotine (Nicoderm 14 Mg/ 24hr) 1 patch DAILY TRANSDERM Last administered on 09:04; Admin Dose 1 PATCH; Start 09/03/16 at 09:00 Diazepam (Valium) 5 mg Q8H PRN PO ANXIETY Last administered on 09/05/16 13:00 ; Admin Dose 5 MG; Start 09/02/16 at 16:00 Hydromorphone HCl (Dilaudid AUTOMOTIVE COLLISION REPAIR INSTRUCTOR) AUTOMOTIVE COLLISION REPAIR INSTRUCTOR to be started in PACU Q4PCA IV Last administered on 09/03/16 00:41; Admin Dose 6 MG; Start 09/02/16 at 16:30; Status Future Hold Famotidine (Pepcid) 20 mg BID PO Last administered on 09/05/16 09:04; Admin Dose 20 MG; Start 09/03/16 at 21:00 Cyclobenzaprine HCl (Flexeril) 10 mg TID PO Last administered on 09/05/16 13: 03; Admin Dose 10 MG; Start 09/03/16 at 13:00 Oxycodone/ Acetaminophen (Percocet (5/ 325)) 1 tab Q4H PRN PO PAIN LEVEL 1-5; Start 09/04/16 at 12:30 Oxycodone/ Acetaminophen (Percocet (5/ 325)) 2 tab Q4H PRN PO PAIN LEVEL 6-10 Last administered on 09/05/16 12:30; Admin Dose 2 TAB; Start 09/04/16 at 12:30 Oxycodone/ Acetaminophen (Endocet (10/ 325)) 1 tab Q4H PRN PO PAIN; Start 09/05 at 14:00 Oxycodone/ Acetaminophen (Endocet (10/ 325)) 2 tab Q4H PRN PO PAIN Last administered on 09/05/16 18:51; Admin Dose 2 TAB; Start 09/05/16 at 14:00 Dexamethasone (Decadron) 8 mg Q12 IV Last administered on 09/05/16 18:51; Admin Dose 8 MG; Start 09/05/16 at 18:15 BEN NICHOLE MD Sep 05, 2016 20:01
[2016-09-05 20:09] VITALS: BP 103/55; RESP 18
[2016-09-06 00:29] VITALS: BP 132/66; PULSE 103; RESP 17
[2016-09-06] MEDS: D5W-0.45 NACL + KCL 20 MEQ 1,000 ML IV SCH (02:18)
[2016-09-06] MEDS: DIAZEPAM 5 MG TAB PO PRN (05:46)
[2016-09-06 08:10] VITALS: BP 108/70; RESP 18
[2016-09-06] MEDS: OXYCODONE/ACETAMINOPHEN (10/325) TAB PO PRN ×2 (08:11→12:38)
[2016-09-06 08:20] VITALS: BP 121/57; RESP 18
[2016-09-06] MEDS: FAMOTIDINE 20 MG TAB PO SCH (09:59)
[2016-09-06] MEDS: DEXAMETHASONE 10 MG/ML 1 ML INJ IV SCH (09:59)
[2016-09-06] MEDS: DOCUSATE SODIUM 100 MG CAP PO SCH (09:59)
[2016-09-06] MEDS: CYCLOBENZAPRINE 10 MG TAB PO SCH ×2 (10:00→13:55)
[2016-09-06] MEDS: NICOTINE (14 MG/24 HR) PATCH TRANSDERM SCH (10:00)
--- NOTE | 2016-09-06 10:37 | PN ---
Date/Time of Note Date/Time of Note DATE: 09/06/16 TIME: 10:35 Assessment/Plan VTE Prophylaxis VTE Prophylaxis Intervention: SCD's Lines/Catheters IV Catheter Type (from Nrs): Saline Lock Urinary Cath still in place: No Assessment/Plan Chief Complaint/Hosp Course ASSESSMENT AND PLAN: 1. L4-L5 and L5-S1 severe central stenosis with degenerative disk disease . The patient is status post L4-L5 & L5-S1 Central decompressive laminectomy with decompression Continue postop care. Continue pain medication, PT, OT evaluate and treat. 2. History of chronic obstructive pulmonary disease. The patient will be placed on breathing treatment. 3. History of nicotine dependency on nicotine patch. 4. Specificity: Restart patient's home medication: Continue tizanidine and Valium -. For deep venous thrombosis prophylaxis on sequential compression devices. - For gastrointestinal prophylaxis on Pepcid Patient is medically stable to be discharged to senior living facility when cleared by orthopedic surgeon Disposition as per orthopedic surgeon Problems: Subjective 24 Hr Interval Summary Free Text/Dictation Patient continues to complain of back pain She denies of having any weakness or numbness Tolerating oral intake Ambulating with moderate medical office receptionist assistant Exam/Review of Systems Vital Signs Vitals Vital Signs Date Time Temp Pulse Resp B/P Pulse Ox O2 Delivery O2 Flow Rate FiO2 09/06/16 08:10 97.3 88 18 108/70 98 09/06/16 00:29 Room Air 09/03/16 05:54 2.0 Intake and Output 09/05/16 09/05/16 09/06/16 15:00 23:00 07:00 Intake Total 500 ml 480 ml Output Total 900 ml Balance 500 ml -420 ml Exam General: The patient is well-developed, Not in acute distress. HEENT: Atraumatic, normocephalic. The pupils are equal and round . Neck: Supple with full range of motion. Chest: Normal expansion of the thorax during inspiration Lungs: Clear to auscultation bilaterally Heart: Normal S1-S2, Regular rhythm and rate. Abdomen: Soft , nontender, nondistended , bowel sounds are present. Extremities: Normal to inspection, no edema no cyanosis Neurologic: Normal mental status,The patient is awake, alert and oriented . Lumbosacral: Surgical site is dry and clean Results Result Diagram: 3/11/17 0421 3/11/17 0421 Medications Medications Current Medications Potassium Chloride/Dextrose/ Sod Cl (D5-1/2ns + KCl 20 Meq) 1,000 ml @ 70 mls/ hr [id number] IV Last administered on 09/03/16 02:09; Admin Dose 70 MLS/HR; Start 09/02/16 at 12:30 Hydromorphone HCl (Dilaudid) 0.5 mg Q3 PRN IV BREAKTHROUGH PAIN Last administered on 09/05/16 16:17; Admin Dose 0.5 MG; Start 09/02/16 at 12:30 Ondansetron HCl (Zofran Inj) 4 mg Q6H PRN IV NAUSEA AND/OR VOMITING; Start 04/11 at 12:30 Prochlorperazine (Compazine Inj) 10 mg Q6H PRN IV NAUSEA AND/OR VOMITING; Start 09/02/16 at 12:30 Bisacodyl (Dulcolax Supp) 10 mg DAILY PRN ME CONSTIPATION Last administered on 09/04/16 13:35; Admin Dose 10 MG; Start 09/02/16 at 12:30 Docusate Sodium (Colace) 100 mg BID PO Last administered on 09/06/16 09:59; Admin Dose 100 MG; Start 09/02/16 at 21:00 Magnesium Hydroxide (Milk Of Mag) 30 ml HS PRN PO CONSTIPATION/DYSPEPSIA Last administered on 09/04/16 17:37; Admin Dose 30 ML; Start 09/02/16 at 12:30 Acetaminophen (Tylenol Tab) 650 mg Q4H PRN PO POSADA OR TEMP GREATER THAN 101.3F Last administered on 09/05/16 05:31; Admin Dose 650 MG; Start 09/02/16 at 12:30 Phenol (Cepastat Lozenge) 1 lozenge PRN PRN MT SORE THROAT; Start 09/02/16 at 12:30 Naloxone HCl (Narcan) 0.2 mg Q2M PRN IV RR 8 BREATHS/MIN OR LESS; Start at 12:30 Miscellaneous Information 1. Hold [facility] RO[facility] at 1,000... [facility] IV ; Start 09/02/16 at 08: 00 Tizanidine HCl (Zanaflex) 2 mg Q8H PRN PO SPASTICITY Last administered on 09:05; Admin Dose 2 MG; Start 09/02/16 at 12:30 Diphenhydramine HCl (Benadryl) 25 mg Q6H PRN PO ITCHING Last administered on 08:38; Admin Dose 25 MG; Start 09/02/16 at 14:30 Nicotine (Nicoderm 14 Mg/ 24hr) 1 patch DAILY TRANSDERM Last administered on 10:00; Admin Dose 1 PATCH; Start 09/03/16 at 09:00 Diazepam (Valium) 5 mg Q8H PRN PO ANXIETY Last administered on 09/06/16 05:46 ; Admin Dose 5 MG; Start 09/02/16 at 16:00 Hydromorphone HCl (Dilaudid [facility]) [facility] to be started in PACU Q4PCA IV Last administered on 09/03/16 00:41; Admin Dose 6 MG; Start 09/02/16 at 16:30; Status Future Hold Famotidine (Pepcid) 20 mg BID PO Last administered on 09/06/16 09:59; Admin Dose 20 MG; Start 09/03/16 at 21:00 Cyclobenzaprine HCl (Flexeril) 10 mg TID PO Last administered on 09/06/16 10: 00; Admin Dose 10 MG; Start 09/03/16 at 13:00 Oxycodone/ Acetaminophen (Percocet (5/ 325)) 1 tab Q4H PRN PO PAIN LEVEL 1-5; Start 09/04/16 at 12:30 Oxycodone/ Acetaminophen (Percocet (5/ 325)) 2 tab Q4H PRN PO PAIN LEVEL 6-10 Last administered on 09/05/16 12:30; Admin Dose 2 TAB; Start 09/04/16 at 12:30 Oxycodone/ Acetaminophen (Endocet (10/ 325)) 1 tab Q4H PRN PO PAIN Last administered on 09/06/16 03:05; Admin Dose 1 TAB; Start 09/05/16 at 14:00 Oxycodone/ Acetaminophen (Endocet (10/ 325)) 2 tab Q4H PRN PO PAIN Last administered on 09/06/16 08:11; Admin Dose 2 TAB; Start 09/05/16 at 14:00 Dexamethasone (Decadron) 8 mg Q12 IV Last administered on 09/06/16t 09:59; Admin Dose 8 MG; Start 09/05/16 at 18:15 LUCILA TORRE MD Sep 06, 2016 10:37
--- NOTE | 2016-09-06 11:18 | DS ---
Date/Time of Note Date/Time of Note DATE: 09/06/16 TIME: 11:15 Discharge Summary Admission/Discharge Info Admit Date/Time Sep 02, 2016 at 05:31 Discharge Date/Time 09/06/2016 Final Diagnosis s/p L4-S1 fusion/decompression Patient Condition: Good Consults Dr. Lockett Procedures L4-S1 fusion/decompression CT of L-spine, no epidural collection and implants in good position Hx of Present Illness Admitted for lumbar surgery. Progressed well post-op. Some pain control issues. CT scan ordered for patient due to increasing pain, but showed no pathology, collections, and hardware in good position Hospital Course ASSESSMENT AND PLAN: 1. L4-L5 and L5-S1 severe central stenosis with degenerative disk disease . The patient is status post L4-L5 & L5-S1 Central decompressive laminectomy with decompression Continue postop care. Continue pain medication, PT, OT evaluate and treat. 2. History of chronic obstructive pulmonary disease. The patient will be placed on breathing treatment. 3. History of nicotine dependency on nicotine patch. 4. Specificity: Restart patient's home medication: Continue tizanidine and Valium -. For deep venous thrombosis prophylaxis on sequential compression devices. - For gastrointestinal prophylaxis on Pepcid Patient is medically stable to be discharged to intermediate facility when cleared by orthopedic surgeon Disposition as per orthopedic surgeon Home Meds Reported Medications Buprenorphine HCl (Belbuca) 75 Mcg Film, 75 MCG BC, FILM 09/01/16 Tizanidine Hcl* (Tizanidine Hcl*) 2 Mg Tablet, 2 MG PO Q8H Y for SPASTICITY, TAB 09/01/16 Acetaminophen* (Tylophen*) 500 Mg Capsule, 1000 MG PO Q6H, TAB 09/01/16 Discontinued Reported Medications Ibuprofen* (Ibuprofen*) 600 Mg Tablet, 600 MG PO Q8, TAB 09/01/16 Follow-up Plan call office for appt in 7-10 days BEN NICHOLE MD Sep 06, 2016 11:18
== END 2016-09-06 15:10 | DRG 460 ==
LOC: REC 05:31 → MS1 17:08
PROVIDERS: ADMIT Orthopaedic Surgery Orthopaedic Surgery of the Spine; ATTEND Orthopaedic Surgery Orthopaedic Surgery of the Spine
PROC: 0SG30A1 (ICD-10-PCS; 2016-09-02)
PROC: 0ST20ZZ Resection of Lumbar Vertebral Disc, Open Approach (ICD-10-PCS; 2016-09-02)
PROC: 07DR3ZZ Extraction of Iliac Bone Marrow, Percutaneous Approach (ICD-10-PCS; 2016-09-02)
PROC: 0SG00A1 (ICD-10-PCS; principal; 2016-09-02 08:00)
DX: M43.17 Spondylolisthesis, lumbosacral region (principal); J44.9 Chronic obstructive pulmonary disease, unspecified; M51.37 Other intervertebral disc degeneration, lumbosacral region; M48.07 Spinal stenosis, lumbosacral region; M51.36 Other intervertebral disc degeneration, lumbar region; M48.06 Spinal stenosis, lumbar region; F17.200 Nicotine dependence, unspecified, uncomplicated; G89.18 Other acute postprocedural pain
CPT/HCPCS: 72114; 72131; 80048; 83735; 85025; 86850; 86900; 86901; 86920; 86999; 87086; 88304; 97116; 97162; 97167; 97530; C1713; C9113; J0330; J0690; J1100; J1170; J1200; J1644; J2175; J2250; J2405; J2710; J2765; J3010; J3480; L0639; Q9967; V2790

== ENCOUNTER 2016-09-25 10:38 | Inpatient (IN) | payer OTHER ==
[~2016-09-25] VITALS: Ht 162.6 cm; Wt 54.3 kg
[~2016-09-25 10:38] MED LIST changes: -IBUP-1542 PO
[2016-09-25] MEDS ORDERED: ONDANSETRON 4 MG INJ IV STA (11:55)
[2016-09-25] MEDS ORDERED: HYDROmorphONE 1 MG/ML SYG IV STA ×2 (11:55→13:17)
[2016-09-25] MEDS ORDERED: SOD CHLORIDE 0.9% 1,000 ML IV STA (11:55)
[2016-09-25 12:34] LABS: ADD SCAN DIFF NO
[2016-09-25 12:36] LABS: BASOPHILS % 0.2 % (0.0-2.0); EOSINOPHILS % 0.2 % (0.0-7.0); HEMATOCRIT 40.5 % (37.0-47.0); HEMOGLOBIN 13.9 g/dl (12.0-16.0); LYMPHOCYTES # 1.8 10^3/ul (0.8-2.9); LYMPHOCYTES % 20.7 % (15.0-51.0); MEAN CORPUSCULAR HEMOGLOBIN 33.3 pg (29.0-33.0); MEAN CORPUSCULAR HGB CONC 34.3 g/dl (32.0-37.0); MEAN CORPUSCULAR VOLUME 96.9 fl (82.0-101.0); MEAN PLATELET VOLUME 9.8 fl (7.4-10.4); MONOCYTE # 0.4 10^3/ul (0.3-0.9); MONOCYTES % 4.1 % (0.0-11.0); NEUTROPHIL # 6.5 10^3/ul (1.6-7.5); NEUTROPHILS % 74.5 % (39.0-77.0); PLATELET COUNT 405 10^3/UL (140-415); RED BLOOD COUNT 4.18 10^6/ul (4.20-5.40); RED CELL DISTRIBUTION WIDTH 11.5 % (11.5-14.5); WHITE BLOOD COUNT 8.7 10^3/ul (4.8-10.8)
[2016-09-25 12:50] LABS: ALBUMIN 4.3 g/dl (3.3-4.9)
[2016-09-25 12:51] LABS: POTASSIUM 3.4 mmol/L (3.5-5.1)
[2016-09-25 12:53] LABS: ALBUMIN/GLOBULIN RATIO 1.19; BILIRUBIN,INDIRECT 0.1 mg/dl (0-1.1); BILIRUBIN,TOTAL 0.1 mg/dl (0.2-1.3); CREATININE 0.7 mg/dl (0.44-1.00); TOTAL PROTEIN 7.9 g/dl (6.1-8.1)
[2016-09-25 12:54] LABS: CALCIUM 9.7 mg/dl (8.4-10.2)
[2016-09-25 12:57] LABS: INR 0.97; PARTIAL THROMBOPLASTIN TIME 31.5 Sec (25.0-35.0); PROTIME 12.9 Sec (12.2-14.2)
[2016-09-25 13:06] LABS: ADD UMIC YES; URINE BILIRUBIN (Dip) NEGATIVE (NEGATIVE); URINE BLOOD (Dip) 1+ (NEGATIVE); URINE COLOR LT. YELLOW (YELLOW); URINE GLUCOSE (Dip) NEGATIVE (NEGATIVE); URINE KETONES (Dip) 15 (NEGATIVE); URINE LEUKOCYTE ESTERASE (Dip) NEGATIVE (NEGATIVE); URINE NITRITE (Dip) NEGATIVE (NEGATIVE); URINE TOTAL PROTEIN (Dip) NEGATIVE (NEGATIVE); URINE UROBILINOGEN (Dip) 0.2 E.U./dL (0.1-1.0)
[2016-09-25 13:20] LABS: BACTERIA,URINE FEW; URINE RBCS 0-2 /HPF (0)
--- NOTE | 2016-09-25 14:23 | RADRPT ---
PROCEDURE: CT Lumbar Spine. CLINICAL INDICATION: Back pain, postoperative TECHNIQUE: Continuous axial CT images were obtained. Sagittal and coronal reformations were creat ed from the raw axial data. The images were reviewed on a PACS workstation. The calculated radiatio n dose measures 229 mGy centimeters. The CTDI measures ate mGy COMPARISON: 09/05/2016 FINDINGS: There is a lumbar dextroscoliosis. There is interbody fusion and posterior sujata and pedicle screw fi xation at L4-5 and L5-S1. There is horizontal linear lucency at L4-5, which may reflect pseudoarthr osis. There is possible mature osseous bridging at L5-S1. There are L4 and L5 laminectomies, with resection of the right sided facet joints. There is a mild anterolisthesis at L4-5, measuring 3 mm. There is a minimal retrolisthesis at L5-S1, 2 mm. L1-L2: There is a mild diffuse disk bulge. There is mild bilateral facet hypertrophy. There is no central canal stenosis. There is minimal bilateral bony foraminal stenosis.. L2-L3: There is a mild diffuse disk bulge, 3 mm. There is mild bilateral facet hypertrophy. There is minimal central canal stenosis. There is minimal bilateral bony foraminal stenosis.. L3-L4: There is a mild diffuse disk bulge, 3 mm. There is moderate bilateral facet hypertrophy. Th ere is mild bony central canal stenosis, and lateral recess narrowing. There is mild right and mini mal left foraminal stenosis.. L4-L5: There is interbody fusion. There is mild left facet hypertrophy. There is no bony central c anal stenosis. There is minimal bilateral bony foraminal stenosis.. L5-S1: There is interbody fusion. There is mild left facet hypertrophy. There is a moderate right paracentral disk protrusion with calcification extending posteriorly 8 mm. There is no central wiley l stenosis. There is probable right lateral recess stenosis. There is mild right and moderate left neural foraminal stenosis.. There is no abnormal paravertebral soft tissue mass. There is moderate aortic and branch vessel keke cification. IMPRESSION: 1. Status post interbody fusion and posterior fixation at L4-5 and L5-S1. There is possible pseudo arthrosis at L4-5. 2. Now seen at L5-S1, there is a moderate right paracentral disk protrusion, 8 mm. There is probab le associated right lateral recess stenosis. This is not well seen on prior examination, and may be new, or newly calcified. There is a minimal retrolisthesis and mild facet hypertrophy at this level, with moderate resulting left foraminal stenosis. 3. Mild bony central canal stenosis and bilateral lateral recess narrowing at L3-L4, related to mil d disk bulge and moderate facet hypertrophy. Listhesis and central canal narrowing appears slightly less prominent compared to prior study. 4. Minimal central canal stenosis at L2-L3. RPTAT: HBST .Darien Acuna MD, Date Time Electronically viewed and signed by .Darien Acuna MD, on 09/25/2016 14:22 .T/
[2016-09-25] MEDS ORDERED: DICLOFENAC SODIUM 37.5 MG/ML VIAL IV STA (14:50)
--- NOTE | 2016-09-25 15:54 | ERA ---
ER Documentation Chief Complaint Date/Time DATE: 09/25/16 TIME: 15:47 Chief Complaint nontraumatic back pain; back surgery on september 02, 2016 HPI This is a 60-year-old female that presents to the emergency department complaining of lower back pain after she underwent a fusion and decompression of her L4 L5-S1 region performed on September 02, 2016 roughly 3 weeks prior to arrival by . Patient indicated no fevers or shaking or chills. She indicates that over the past 48 hours she has been experiencing a significant amount of pain that exacerbated by movement over the surgical incision site. She has been taking analgesic medication which includes tunnel 3 with codeine with no improvement of her symptoms. The pain is 10 out of 10 intensity. She has had no fevers no shaking or chills. She denies any frequency urgency or dysuria. She denies any saddle anesthesia. She has no changes in her bladder or bowel frequency ROS All systems reviewed and are negative except as per history of present illness. Medications Home Meds Reported Medications Buprenorphine HCl (Belbuca) 75 Mcg Film, 75 MCG BC, FILM 09/01/16 Tizanidine Hcl* (Tizanidine Hcl*) 2 Mg Tablet, 2 MG PO Q8H Y for SPASTICITY, TAB 09/01/16 Acetaminophen* (Tylophen*) 500 Mg Capsule, 1000 MG PO Q6H, TAB 09/01/16 Allergies Allergies: Coded Allergies: gabapentin (Verified Adverse Reaction, Severe, HEADACHE, 09/01/16) PMhx/Soc History of Surgery: Yes (HYSTERECTOMY,4 LUMPS REMOVED IN NECK, BROCHIAL BLOCKAGE) Anesthesia Reaction: No Hx Neurological Disorder: No Hx Respiratory Disorders: Yes (COPD) Hx Cardiac Disorders: No Hx Psychiatric Problems: No Hx Miscellaneous Medical Probl: Yes (COPD, hysterectomy) Hx Alcohol Use: No Hx Substance Use: No Hx Tobacco Use: Yes (4 CIG A DAY) Smoking Status: Current every day smoker Physical Exam Vitals Vital Signs Date Time Temp Pulse Resp B/P Pulse Ox O2 Delivery O2 Flow Rate FiO2 09/25/16 11:31 102 09/25/16 10:43 98.7 130 18 147/85 98 Physical Exam Constitutional:Well-developed. Well-nourished. HEENT:Normocephalic. Atraumatic.Pupils were equal round reactive to light. Moist mucous membranes.No tonsillar exudates. Neck: No nuchal rigidity. No lymphadenopathy. No posterior cervical spine tenderness or step-offs. Respiratory: Not using accessory muscles of respiration.Lungs were clear to auscultation bilaterally. No rhonchi. No rales. No wheezing. Cardiovascular: Regular rate regular rhythm.No murmurs. No rubs were appreciated.S1, S2 normal. Distal pulses are palpable 2+ bilaterally. GI: Abdomen was soft. Nontender. Non Distended. No pulsatile abdominal masses or bruits. No rebound. No guarding. Bowel sounds were present and normal. Muscle skeletal: Full range of motion of both the upper and lower extremities bilaterally.Normal muscle tone.No assymetrical calf tenderness or swelling. Skin: No petechia, no purpura. No lesions on the palms or the soles of the feet. No maculopapular rash. Tenderness over the surgical incision site with no surrounding erythema warmth, fluctuance or induration. NEURO: Patient was alert, awake, orientated x3.No facial droop. Gait observed and normal with no ataxia.Speech had regular rate and rhythm. No focal neurological deficits. Result Diagram: 09/25/16 1217 09/25/16 1217 Results 24 hrs Laboratory Tests Test 09/25/16 12:17 White Blood Count 8.710^3/ul Red Blood Count 4.1810^6/ul Hemoglobin 13.9g/dl Hematocrit 40.5% Mean Corpuscular Volume 96.9fl Mean Corpuscular Hemoglobin 33.3pg Mean Corpuscular Hemoglobin Concent 34.3g/dl Red Cell Distribution Width 11.5% Platelet Count 16275^3/UL Mean Platelet Volume 9.8fl Neutrophils % 74.5% Lymphocytes % 20.7% Monocytes % 4.1% Eosinophils % 0.2% Basophils % 0.2% Nucleated Red Blood Cells % 0.0/100WBC Neutrophils # 6.510^3/ul Lymphocytes # 1.810^3/ul Monocytes # 0.410^3/ul Eosinophils # 0.010^3/ul Basophils # 0.010^3/ul Nucleated Red Blood Cells # 0.010^3/ul Prothrombin Time 12.9Sec Prothrombin Time Ratio 1.0 INR International Normalized Ratio 0.97 Activated Partial Thromboplast Time 31.5Sec Urine Color LT. YELLOW Urine Clarity CLEAR Urine pH 6.0 Urine Specific [place] 1.015 Urine Ketones 15 Urine Nitrite NEGATIVE Urine Bilirubin NEGATIVE Urine Urobilinogen 0.2 E.U./dL Urine Leukocyte Esterase NEGATIVE Urine Microscopic RBC 0-2/HPF Urine Microscopic WBC 2-5/HPF Urine Epithelial Cells FEW Urine Bacteria FEW Urine Hemoglobin 1+ Urine Glucose NEGATIVE% Urine Total Protein NEGATIVE Sodium Level 143mmol/L Potassium Level 3.4mmol/L Chloride Level 106mmol/L Carbon Dioxide Level 23mmol/L Anion Gap 17 Blood Urea Nitrogen 8mg/dl Creatinine 0.70mg/dl Glucose Level 103mg/dl Calcium Level 9.7mg/dl Total Bilirubin 0.1mg/dl Direct Bilirubin 0.00mg/dl Indirect Bilirubin 0.1mg/dl Aspartate Amino Transf (AST/SGOT) 18IU/L Alanine Aminotransferase (ALT/SGPT) 19IU/L Alkaline Phosphatase 127IU/L Total Protein 7.9g/dl Albumin 4.3g/dl Globulin 3.60g/dl Albumin/Globulin Ratio 1.19 Lipase 39U/L Current Medications Medications (Trade) Dose Ordered Sig/Nuria Route PRN Reason Start Time Stop Time Status Last Admin Dose Admin Sodium Chloride (NS) 1,000 ml @ 1,000 mls/hr Q1H STAT IV 09/25/16 11:55 09/25/16 12:54 DC 09/25/16 12:26 Hydromorphone HCl (Dilaudid) 1 mg ONCE STAT IV 09/25/16 11:55 09/25/16 11:57 DC 09/25/16 12:26 Ondansetron HCl (Zofran Inj) 4 mg ONCE STAT IV 09/25/16 11:55 09/25/16 11:57 DC 09/25/16 12:25 Hydromorphone HCl (Dilaudid) 1 mg ONCE STAT IV 09/25/16 13:17 09/25/16 13:18 DC 09/25/16 13:21 Diclofenac Sodium (Dyloject) 37.5 mg ONCE STAT IV 09/25/16 14:50 09/25/16 15:05 DC 09/25/16 15:17 Procedures/MDM The patient presented to the emergency department with back pain after surgical intervention 3 weeks prior to arrival with a lumbar fusion. My differential diagnosis included but was not limited to spinal origins of the pain such as fracture, osteomyelitis, epidural abscess, neoplasm, spondylolishtesis, discogenic, cauda equina syndrome or musculoligamentous. Nonspinal causes such as AAA, upper UTI, renal colic, aortic dissection, abdominal neoplasm were also considered as an etiology into their pain. There is no leukocytosis to suggest an infectious process. I obtained a CT scan of the lumbar spine which indicated: 1. Status post interbody fusion and posterior fixation at L4-5 and L5-S1. There is possible pseudoarthrosis at L4-5. 2. Now seen at L5-S1, there is a moderate right paracentral disk protrusion, 8 mm. There is probable associated right lateral recess stenosis. This is not well seen on prior examination, and may be new, or newly calcified. There is a minimal retrolisthesis and mild facet hypertrophy at this level, with moderate resulting left foraminal stenosis. 3. Mild bony central canal stenosis and bilateral lateral recess narrowing at L3-L4, related to mild disk bulge and moderate facet hypertrophy. Listhesis and central canal narrowing appears slightly less prominent compared to prior study. 4. Minimal central canal stenosis at L2-L3. 12 Lead EKG tracing ordered and reviewed by myself showed: Sinus tachycardia 102 bpm and no arrhythmia. HI interval normal. QRS duration normal. No ST segment elevation No ST segment depression. No changes consistent with acute ischemia. At this time I did speak with Dr. Massey and who is taking call for Dr. Gonzales. The patient's pain did not improve with NSAIDs which included IV diloject . Therefore the patient was given intravenous Dilaudid with only minimal improvement of her pain. Therefore the patient will be admitted for observation for intractable pain postoperatively to the hospitalist Departure Diagnosis: Primary Impression: Postoperative back pain Condition: Serious PREMA JACOB Sep 25, 2016 15:54
[2016-09-25] MEDS ORDERED: ONDANSETRON 4 MG INJ IV PRN (16:30)
[2016-09-25] MEDS ORDERED: ACETAMINOPHEN 325 MG TAB PO PRN ×2 (16:30→18:30)
[2016-09-25 17:31] VITALS: TEMP 98.2
[2016-09-25] MEDS ORDERED: morphine 10 MG INJ IM PRN (18:00)
[2016-09-25 18:07] VITALS: Ht 162.6 cm; Wt 54.3 kg
[2016-09-25 18:28] VITALS: BP 165/90; PULSE 78; RESP 18
[2016-09-25] MEDS ORDERED: morphine 2 MG INJ IV PRN (18:30)
[2016-09-25] MEDS ORDERED: TIZANIDINE 2 MG TAB PO PRN (18:30)
[2016-09-25] MEDS ORDERED: MAGNESIUM HYDROXIDE 30ML CUP PO PRN (18:30)
[2016-09-25] MEDS ORDERED: BISACODYL (EC) 5 MG TAB PO PRN (18:30)
[2016-09-25] MEDS ORDERED: HYDROCODONE/APAP (5/325) TAB PO PRN (18:30)
[2016-09-25] MEDS ORDERED: NACL 0.9% 3 ML SYG IV SCH (18:30)
[2016-09-25] MEDS ORDERED: POTASSIUM CHLORIDE (SR) 20 MEQ TAB PO STA (18:30)
[2016-09-25] MEDS: HYDROmorphONE 1 MG/ML SYG IV PRN ×2 (18:40→21:37)
[2016-09-25 19:28] VITALS: BP 113/69; RESP 20
--- NOTE | 2016-09-25 19:40 | HP ---
DATE OF ADMISSION: 09/25/2016 CHIEF COMPLAINT: Back pain. HISTORY OF PRESENT ILLNESS: The patient is a 60-year-old female who was recently discharged from [facility] after having a L4-S1 fusion and decompression. The patient was doing well postop. She was in a care home for a few days, but felt good and felt that she can take care of herself at home. The patient states that approximately 3 days ago she began to have lower back pain that h as been constant. She went to urgent care they told her to come back to the hospital where she had the surgery done. Hence, she drove herself to the ER today. She states that her back pain is not i mproving, it is persistent. It is worse when she lifts her legs. She denies any heavy lifting sinc e the surgery. She has no other complaints at this time. PAST MEDICAL HISTORY: 1. Chronic back pain, status post L4-S1 fusion and decompression, 09/02/2016. 2. COPD. 3. Hysterectomy. 4. Migraine headaches. 5. Foreign body removal from wrist. HOME MEDICATIONS: Please see medication reconciliation. ALLERGIES: 1. GABAPENTIN. 2. REGLAN. FAMILY HISTORY: Noncontributory. SOCIAL HISTORY: Positive for smoking. She is down to 4 cigarettes a day. She denies alcohol or il licit drugs. REVIEW OF SYSTEMS: A 12-point review of systems negative except for that mentioned in the HPI. PHYSICAL EXAMINATION: VITAL SIGNS: Temperature is 98.2, pulse 73, respiratory rate is 18, BP is 164/79, saturation 99% on room air. GENERAL: Mild distress, alert and oriented. HEENT: Normocephalic, atraumatic. LUNGS: Clear to auscultation. CARDIOVASCULAR: Regular rate and rhythm. ABDOMEN: Nondistended, nontender, soft. EXTREMITIES: No clubbing, cyanosis, or edema. NEUROLOGIC: No focal deficits. LABORATORIES: White count is 8.7, hemoglobin 13.9, platelets are 405. Chemistry within normal limi ts except for potassium of 3.4, alkaline phosphatase 127. INR is 0.97. UA within normal limits. DIAGNOSTICS: Lumbar spine CT shows status post interbody fusion and posterior fixation of L4-L5 and L5-S1. There is possible pseudoarthrosis L4-L5. Now seen at L5-S1, there is moderate right parace ntral disk protrusion. There is a right lateral recess stenosis. This was not well seen on prior e xamination, may be new or newly calcified. There is also left foraminal stenosis. There is mild hi ny central canal stenosis and lateral recess narrowing related to a mild disk bulge. There is minim al central canal stenosis at L2-L3. ASSESSMENT AND PLAN: 1. Acute on chronic back pain. The patient states that she has had worsening back pain for the pas t 3 days. The surgery was approximately 3 weeks ago. The pain has been persistent. CT scan does s how some acute changes, as mentioned above. Will follow up with orthopedist recommendations. Dr. Gabriel varghese was called in the ED and Dr. Santos is reportedly covering for him. We will follow up on the recommendations. Will give Dilaudid 1 mg p.r.n. 2. History of chronic obstructive pulmonary disease secondary to tobacco abuse, stable. 3. History of migraines, stable. 4. Mild hypokalemia, replete. 5. Prophylaxis. Ambulation. Dictated By: CHRISSY MARIANO MD BS/NTS Conf#: [id number] DID#: [id number]
[2016-09-25] MEDS: DOCUSATE SODIUM 100 MG CAP PO SCH (20:20)
[2016-09-25] MEDS ORDERED: ZOLPIDEM 5 MG TAB PO ONE (21:00)
[2016-09-26] MEDS: HYDROmorphONE 1 MG/ML SYG IV PRN ×9 (00:33→21:20)
[2016-09-26 06:03] LABS: ADD SCAN DIFF NO
[2016-09-26 06:06] LABS: BASOPHILS % 0.4 % (0.0-2.0); EOSINOPHILS # 0.2 10^3/ul (0.0-0.5); EOSINOPHILS % 3.1 % (0.0-7.0); HEMATOCRIT 34.2 % (37.0-47.0); HEMOGLOBIN 11.4 g/dl (12.0-16.0); LYMPHOCYTES # 2.3 10^3/ul (0.8-2.9); LYMPHOCYTES % 34.3 % (15.0-51.0); MEAN CORPUSCULAR HEMOGLOBIN 32.9 pg (29.0-33.0); MEAN CORPUSCULAR HGB CONC 33.3 g/dl (32.0-37.0); MEAN CORPUSCULAR VOLUME 98.8 fl (82.0-101.0); MONOCYTE # 0.5 10^3/ul (0.3-0.9); MONOCYTES % 8.1 % (0.0-11.0); NEUTROPHIL # 3.6 10^3/ul (1.6-7.5); NEUTROPHILS % 53.8 % (39.0-77.0); PLATELET COUNT 273 10^3/UL (140-415); RED BLOOD COUNT 3.46 10^6/ul (4.20-5.40); RED CELL DISTRIBUTION WIDTH 11.9 % (11.5-14.5); WHITE BLOOD COUNT 6.7 10^3/ul (4.8-10.8)
[2016-09-26 06:24] LABS: POTASSIUM 3.6 mmol/L (3.5-5.1)
[2016-09-26 06:27] LABS: CREATININE 0.53 mg/dl (0.44-1.00)
[2016-09-26 06:28] LABS: CALCIUM 8.6 mg/dl (8.4-10.2); MAGNESIUM 2.1 mg/dl (1.7-2.5); PHOSPHORUS 3.6 mg/dl (2.5-4.9)
[2016-09-26] MEDS: DOCUSATE SODIUM 100 MG CAP PO SCH ×2 (06:35→18:00)
[2016-09-26] MEDS: ONDANSETRON 4 MG INJ IV PRN ×3 (06:40→21:20)
[2016-09-26 07:31] VITALS: BP 150/80; RESP 22
--- NOTE | 2016-09-26 16:02 | PN ---
Date/Time of Note Date/Time of Note DATE: 09/26/16 TIME: 16:01 Assessment/Plan VTE Prophylaxis VTE Prophylaxis Intervention: SCD's Lines/Catheters IV Catheter Type (from Nrsg): Peripheral IV Assessment/Plan Assessment/Plan 1. Acute on chronic back pain. The patient states that she has had worsening back pain for the past 3 days. The surgery was approximately 3 weeks ago. The pain has been persistent. CT scan does show some acute changes, as mentioned above. Will follow up with orthopedist recommendations. Dr. Mahmood was called in the ED and Dr. Santos is reportedly covering for him. We will follow up on the recommendations. Will give Dilaudid 1 mg p.r.n. 2. History of chronic obstructive pulmonary disease secondary to tobacco abuse , stable. 3. History of migraines, stable. 4. Mild hypokalemia, replete. 5. Prophylaxis. SCD case management consutl for SNF placement Subjective 24 Hr Interval Summary Free Text/Dictation c/o intractable pain , not able to ambulate to severe pain Exam/Review of Systems Vital Signs Vitals Vital Signs Date Time Temp Pulse Resp B/P Pulse Ox O2 Delivery O2 Flow Rate FiO2 09/26/16 07:31 98.2 78 22 150/80 92 09/25/16 18:28 Room Air Intake and Output 09/25/16 09/25/16 09/26/16 15:00 23:00 07:00 Intake Total 480 ml Balance 480 ml Exam GENERAL: Mild distress, alert and oriented. HEENT: Normocephalic, atraumatic. LUNGS: Clear to auscultation. CARDIOVASCULAR: Regular rate and rhythm. ABDOMEN: Nondistended, nontender, soft. EXTREMITIES: No clubbing, cyanosis, or edema. NEUROLOGIC: No focal deficits. Results Result Diagram: 09/26/16 0535 09/26/16 0535 Results 24 hrs Laboratory Tests Test 09/26/16 05:35 White Blood Count 6.7 # Red Blood Count 3.46 L Hemoglobin 11.4 L Hematocrit 34.2 L Mean Corpuscular Volume 98.8 Mean Corpuscular Hemoglobin 32.9 Mean Corpuscular Hemoglobin Concent 33.3 Red Cell Distribution Width 11.9 Platelet Count 273 # Mean Platelet Volume 10.0 Neutrophils % 53.8 Lymphocytes % 34.3 Monocytes % 8.1 Eosinophils % 3.1 Basophils % 0.4 Nucleated Red Blood Cells % 0.0 Neutrophils # 3.6 Lymphocytes # 2.3 Monocytes # 0.5 Eosinophils # 0.2 Basophils # 0.0 Nucleated Red Blood Cells # 0.0 Sodium Level 140 Potassium Level 3.6 Chloride Level 107 Carbon Dioxide Level 23 Anion Gap 14 Blood Urea Nitrogen 8 Creatinine 0.53 Glucose Level 92 Hemoglobin A1c 4.7 Calcium Level 8.6 Phosphorus Level 3.6 Magnesium Level 2.1 Medications Medications Current Medications Morphine Sulfate (morphine) 1 mg Q3H PRN IV pain; Start 09/25/16 at 18:30 Ondansetron HCl (Zofran Inj) 4 mg Q6H PRN IV NAUSEA AND/OR VOMITING Last administered on 09/26/16 15:22; Admin Dose 4 MG; Start 09/25/16 at 18:30 Acetaminophen (Tylenol Tab) 650 mg Q6H PRN PO PAIN LEVEL 1-3 OR FEVER; Start at 18:30 Acetaminophen/ Hydrocodone Bitart (Amboy (5/325)) 1 tab Q6H PRN PO MODERATE PAIN LEVEL 4-6; Start 09/25/16 at 18:30 Docusate Sodium (Colace) 100 mg Q12H PO Last administered on 09/26/16 06:35; Admin Dose 100 MG; Start 09/25/16 at 18:30 Magnesium Hydroxide (Milk Of Mag) 30 ml DAILY PRN PO CONSTIPATION; Start at 18:30 Bisacodyl (Dulcolax) 5 mg DAILY PRN PO CONSTIPATION Last administered on 15:22; Admin Dose 5 MG; Start 09/25/16 at 18:30 Miscellaneous Information (* Miscellaneous Pharmacy Order) 1 ea PRN PRN XX WOUND CARE; Start 09/25/16 at 18:30 Tizanidine HCl (Zanaflex) 2 mg Q8H PRN PO SPASTICITY; Start 09/25/16 at 18:30 Hydromorphone HCl (Dilaudid) 1 mg Q3 PRN IV PAIN Last administered on 09/26/16 15:22; Admin Dose 1 MG; Start 09/25/16 at 18:30 RUDY RILEY MD Sep 26, 2016 16:02
[2016-09-26 19:00] VITALS: BP 128/77; RESP 20
[2016-09-26] MEDS ORDERED: ZOLPIDEM 5 MG TAB PO PRN (22:00)
[2016-09-27] MEDS: HYDROCODONE/APAP (5/325) TAB PO PRN ×3 (01:40→09:46)
[2016-09-27] MEDS ORDERED: NICOTINE (14 MG/24 HR) PATCH TRANSDERM SCH (04:30)
[2016-09-27] MEDS: DOCUSATE SODIUM 100 MG CAP PO SCH (05:25)
[2016-09-27] MEDS ORDERED: LORAZEPAM 0.5 MG TAB PO ONE (06:37)
[2016-09-27 07:22] VITALS: BP 196/86; RESP 20
[2016-09-27 07:52] VITALS: BP 141/86; RESP 20
--- NOTE | 2016-09-27 11:05 | PN ---
Date/Time of Note Date/Time of Note DATE: 09/27/16 TIME: 11:04 Assessment/Plan VTE Prophylaxis VTE Prophylaxis Intervention: SCD's Lines/Catheters IV Catheter Type (from Nrsg): Saline Lock Assessment/Plan Assessment/Plan 1. Acute on chronic back pain. The patient states that she has had worsening back pain for the past 3 days. The surgery was approximately 3 weeks ago. The pain has been persistent. CT scan does show some acute changes, as mentioned above. Will follow up with orthopedist recommendations. Dr. Mahmood was called in the ED and Dr. Santos is reportedly covering for him. We will follow up on the recommendations. Will give Dilaudid 1 mg p.r.n. 2. History of chronic obstructive pulmonary disease secondary to tobacco abuse , stable. 3. History of migraines, stable. 4. Mild hypokalemia, replete. 5. Prophylaxis. SCD case management consutl for SNF placement- d/c to SNF today Subjective 24 Hr Interval Summary Free Text/Dictation pain controlled, BP stable, afebrile Exam/Review of Systems Vital Signs Vitals Vital Signs Date Time Temp Pulse Resp B/P Pulse Ox O2 Delivery O2 Flow Rate FiO2 09/27/16 07:52 101.6 80 20 141/86 95 09/25/16 18:28 Room Air Intake and Output 09/26/16 09/26/16 09/27/16 15:00 23:00 07:00 Intake Total 1280 ml 720 ml Output Total 400 ml Balance 1280 ml 320 ml Results Result Diagram: 09/26/16 0535 09/26/16 0535 Medications Medications Current Medications Morphine Sulfate (morphine) 1 mg Q3H PRN IV pain; Start 09/25/16 at 18:30 Ondansetron HCl (Zofran Inj) 4 mg Q6H PRN IV NAUSEA AND/OR VOMITING Last administered on 09/26/16 21:20; Admin Dose 4 MG; Start 09/25/16 at 18:30 Acetaminophen (Tylenol Tab) 650 mg Q6H PRN PO PAIN LEVEL 1-3 OR FEVER Last administered on 09/27/16 08:15; Admin Dose 650 MG; Start 09/25/16 at 18:30 Docusate Sodium (Colace) 100 mg Q12H PO Last administered on 09/27/16 05:25; Admin Dose 100 MG; Start 09/25/16 at 18:30 Magnesium Hydroxide (Milk Of Mag) 30 ml DAILY PRN PO CONSTIPATION; Start at 18:30 Bisacodyl (Dulcolax) 5 mg DAILY PRN PO CONSTIPATION Last administered on 15:22; Admin Dose 5 MG; Start 09/25/16 at 18:30 Miscellaneous Information (* Miscellaneous Pharmacy Order) 1 ea PRN PRN XX WOUND CARE; Start 09/25/16 at 18:30 Tizanidine HCl (Zanaflex) 2 mg Q8H PRN PO SPASTICITY; Start 09/25/16 at 18:30 Acetaminophen/ Hydrocodone Bitart (Banks (5/325)) 1 tab Q4 PRN PO MODERATE PAIN LEVEL 4-6 Last administered on 09/27/16 09:46; Admin Dose 1 TAB; Start 09/27 at 01:00 Zolpidem Tartrate (Ambien) 10 mg HS PRN PO INSOMNIA Last administered on 22:16; Admin Dose 10 MG; Start 09/26/16 at 22:00 Nicotine (Nicoderm 14 Mg/ 24hr) 1 patch DAILY TRANSDERM Last administered on 04:19; Admin Dose 1 PATCH; Start 09/27/16 at 04:30 RUDY RILEY MD Sep 27, 2016 11:05
--- NOTE | 2016-09-27 11:06 | PDOCDIS ---
Discharge Instructions CONDITION Patient Condition: Good HOME CARE INSTRUCTIONS: Special Diet: regular ACTIVITY: Activity Restrictions: Slowly Increase Activity Rest between Activity Avoid heavy lifting Avoid Heavy Housework FOLLOW UP/APPOINTMENTS Appointments follow up with her own PMD through HMO insurance in 1-2 week,. follow up with physician at [facility] RUDY RILEY MD Sep 27, 2016 11:06
--- NOTE | 2016-09-27 23:11 | DS ---
DATE OF ADMISSION: 09/26/2016 DATE OF DISCHARGE: 09/27/2016 FINAL DISCHARGE DIAGNOSES: 1. Intractable back pain with acute on chronic back pain. 2. History of chronic obstructive pulmonary disease. 3. History of migraine. 4. History of recent back surgery. 5. Hypokalemia. CONSULTATIONS DONE DURING THIS HOSPITALIZATION: None. PROCEDURES PERFORMED DURING THIS HOSPITALIZATION: None. HOSPITAL COURSE: This is a 60-year-old female who was recently discharged from [facility] after having L4-L5 fusion and decompression surgery. The patient is currently recent posto p. She was in a [facility] for a few days, but felt good. She was discharged and, approximately 3 days ago, the patient began to have lower back pain, which has been constant. She went to the [facility]. They advised the patient to come to the emergency room. The patient was complaining of i ntractable back pain, so she was admitted for pain control and physical therapy evaluation. She rem ained hemodynamically stable. Her past medical history includes chronic back pain, status post L4-L 5 fusion and decompression done on 09/02/2016. Other medical history includes COPD, hysterectomy, m igraine headache, and the foreign body removal from the wrist. After having physical therapy, she was recommended and was set up for a residential placement an d she is getting accepted to the [facility] residential [facility]. DISPOSITION: To residential facility, [facility]. DISCHARGE CONDITION: Stable and improved compared to admission. DISCHARGE ACTIVITIES: As tolerated, slowly resume to the normal baseline activity. DISCHARGE DIET: Regular diet. DISCHARGE MEDICATIONS: As per medical reconciliation. DISCHARGE FOLLOWUP AND INSTRUCTIONS: 1. The patient is to follow up with the physician at the residential facility. 2. The patient is to follow up with her original spine surgeon as outpatient in 1 to 2 weeks after discharge. She has been explained about the discharge plan and followup instructions. She understo od and verbalized understanding. Dictated By: RUDY RILEY MD, KP/LESLYE Conf#: [id number] DID#: [id number] CC: CHRISSY MARIANO MD;*EndCC*
== END 2016-09-27 15:20 | DRG 948 ==
LOC: FTE 10:38 → MS2 16:10 → OBSVTOIN 09-26 10:52
PROVIDERS: ADMIT Internal Medicine; ATTEND Internal Medicine
DX: G89.18 Other acute postprocedural pain (principal); J44.9 Chronic obstructive pulmonary disease, unspecified; G89.29 Other chronic pain; Z98.1 Arthrodesis status; Z72.0 Tobacco use; G43.909 Migraine, unspecified, not intractable, without status migrainosus; E87.6 Hypokalemia; M54.5 Low back pain
CPT/HCPCS: 36415; 72131; 80048; 80053; 81001; 81003; 83036; 83690; 83735; 84100; 85025; 85610; 85730; 87081; 93005; 96374; 96375; 96376; G0378; J1170; J2405; J7030

== ENCOUNTER 2016-10-23 20:01 | Inpatient (IN) | payer OTHER ==
[~2016-10-23] VITALS: Ht 162.6 cm; Wt 60.0 kg
[2016-10-23 21:35] VITALS: BP 121/78; PULSE 88; RESP 19
[2016-10-23] MEDS ORDERED: VANCOMYCIN IV PER PHARMACY XX SCH (22:00)
[2016-10-23] MEDS ORDERED: VANCOMYCIN 1 GM in NS 250 ML IVPB SCH (22:00)
[2016-10-23] MEDS ORDERED: ONDANSETRON 4 MG INJ IV PRN (22:00)
[2016-10-23] MEDS: morphine 4 MG/ML VIAL IV PRN (22:20)
[2016-10-23] MEDS: ALPRAZOLAM 1 MG TAB PO SCH (22:20)
[2016-10-23] MEDS: NICOTINE (21 MG/24 HR) PATCH TRANSDERM SCH (22:44)
[2016-10-24] MEDS: LORAZEPAM 2 MG INJ IV PRN ×3 (00:10→09:54)
[2016-10-24] MEDS ORDERED: VITAMIN A & D 5 GM OINT PACKET TOP ONE (00:23)
[2016-10-24] MEDS: morphine 4 MG/ML VIAL IV PRN ×2 (02:40→06:43)
[2016-10-24] MEDS: ACETAMINOPHEN 325 MG TAB PO PRN ×2 (02:42→08:37)
[2016-10-24] MEDS ORDERED: TIZANIDINE 2 MG TAB PO PRN (07:30)
[2016-10-24 07:50] VITALS: BP 122/72; RESP 18
[2016-10-24] MEDS: ALPRAZOLAM 1 MG TAB PO SCH ×2 (08:25→12:51)
[2016-10-24] MEDS: NICOTINE (21 MG/24 HR) PATCH TRANSDERM SCH (08:27)
[2016-10-24] MEDS ORDERED: CEFEPIME 1GM/50 ML (PMX) 50 ML IVPB SCH (09:00)
[2016-10-24] MEDS ORDERED: TIZANIDINE 4 MG TAB PO PRN (09:00)
[2016-10-24] MEDS ORDERED: VANCOMYCIN 750 MG in SOD CHLORIDE 0.9% 150 ML IVPB SCH (10:00)
[2016-10-24] MEDS: HYDROCODONE/APAP (5/325) TAB PO PRN ×2 (10:28→15:41)
--- NOTE | 2016-10-24 10:48 | HP ---
DATE OF ADMISSION: 10/23/2016 TIME SEEN: 2300. CHIEF COMPLAINT: Back pain and anxiety. HISTORY OF PRESENT ILLNESS: The patient is a 60-year-old female with a history of PE, migraine heada ches and recent lumbar decompressive laminectomy, who initially presented to [facility] with a compl aint of back pain as well as anxiety. She stated that she had been taking her pain medication with more frequency and she has run out of them and also stated that she had been under a lot of anxiety lately. She states she is able to walk, however, she is experiencing back pain. She did see the yasir geon who operated on her, Dr. Mahmood several weeks ago and ____ there was no complications wi th her surgery. At [facility] imaging of her lumbar spine shows either postsurgical reactive findings versus possibl e osteomyelitis. The patient was transferred here because of ____ . The patient also currently complains about diffuse headache, which she states with her migrain e headaches. Will ____ . REVIEW OF SYSTEMS: A 12-point review was performed, negative except as mentioned in the HPI. PAST MEDICAL HISTORY: As per HPI. PAST SURGICAL HISTORY: As per HPI. SOCIAL HISTORY: She denied history of alcohol or illicit drug use. ALLERGIES: NO KNOWN DRUG ALLERGIES. HOME MEDICATIONS: Please see recent current medications. PHYSICAL EXAMINATION: VITAL SIGNS: Stable. GENERAL: The patient is under moderate distress due to back pain, looks very anxious. She is, up la nena, able to answer questions appropriately. HEENT: No obvious deformity. Pupils are reactive to light. Extraocular movements are intact. CARDIOVASCULAR: Tachycardic with regular rhythm. RESPIRATORY: Lungs clear. ABDOMEN: Soft, nontender, nondistended. Positive bowel sounds. EXTREMITIES: No edema. NEUROLOGIC: No focal deficits. LABORATORY DATA: Hemoglobin 13.6, otherwise ____ in acceptable range. IMAGING: Lumbar imaging at outside hospital at [facility] shows osteomyelitis versus post-reactive change. IMPRESSION: 1. Back pain. 2. Recent lumbar compressive laminectomy in ____ . 3. Anxiety. 4. History of chronic obstructive pulmonary disease. 5. History of migraine headaches. PLAN: Will contact her surgeon to comment on the imaging findings from [facility]. In the meantime, will provide pain medication. Will also place an ID consult, given possible osteomyelitis. She wi ll be placed on antibiotics. She will receive pain medication and antianxiety medication. The oracio ent will have physical therapy during this hospitalization. Currently ____ exacerbation of COPD bu t she will receive breathing treatments and also steroid ____. Further workup and management will be per clinical course. Dictated By: YORDY CIFUENTES/LESLYE Conf#: [id number] DID#: [id number]
[2016-10-24 12:31] LABS: ADD SCAN DIFF NO
[2016-10-24 12:35] LABS: BASOPHILS % 0.4 % (0.0-2.0); EOSINOPHILS # 0.3 10^3/ul (0.0-0.5); EOSINOPHILS % 3.9 % (0.0-7.0); HEMATOCRIT 33.9 % (37.0-47.0); HEMOGLOBIN 11.4 g/dl (12.0-16.0); LYMPHOCYTES # 1.8 10^3/ul (0.8-2.9); LYMPHOCYTES % 26.2 % (15.0-51.0); MEAN CORPUSCULAR HEMOGLOBIN 32.9 pg (29.0-33.0); MEAN CORPUSCULAR HGB CONC 33.6 g/dl (32.0-37.0); MEAN CORPUSCULAR VOLUME 97.7 fl (82.0-101.0); MEAN PLATELET VOLUME 10.1 fl (7.4-10.4); MONOCYTE # 0.6 10^3/ul (0.3-0.9); MONOCYTES % 8.9 % (0.0-11.0); NEUTROPHIL # 4.2 10^3/ul (1.6-7.5); NEUTROPHILS % 60.3 % (39.0-77.0); PLATELET COUNT 237 10^3/UL (140-415); RED BLOOD COUNT 3.47 10^6/ul (4.20-5.40); RED CELL DISTRIBUTION WIDTH 11.9 % (11.5-14.5); WHITE BLOOD COUNT 6.9 10^3/ul (4.8-10.8)
[2016-10-24 12:41] LABS: POTASSIUM 3.8 mmol/L (3.5-5.1)
[2016-10-24 12:44] LABS: CREATININE 0.54 mg/dl (0.44-1.00)
[2016-10-24 12:45] LABS: CALCIUM 8.4 mg/dl (8.4-10.2); PHOSPHORUS 3.4 mg/dl (2.5-4.9)
[2016-10-24 13:15] VITALS: Ht 162.6 cm; Wt 60.0 kg
--- NOTE | 2016-10-24 16:41 | PN ---
DATE: 10/24/2016 SUBJECTIVE: Internal Medicine Followup. Chart reviewed. It should be reviewed by Dr. Perry Bone. Currently, the patient is on analgesics. PHYSICAL EXAMINATION: VITAL SIGNS: Blood pressure 122/72, pulse 78, respiration 18, temperature 97.9. She is on room air saturating 97%. HEENT: Pupils are equal and reactive to light. NECK: Supple, no JVD noted, no cervical adenopathy, no carotid bruits heard. LUNGS: Fair breath sounds bilaterally. CARDIOVASCULAR: S1, S2 normal. ABDOMEN: Soft, nontender. No organomegaly or masses noted. EXTREMITIES: No clubbing, cyanosis, or edema noted. NEUROLOGICAL: Awake. LABORATORIES: WBC 6.9, hemoglobin 11.4, hematocrit 33.9, platelets 237. Sodium 139, potassium 3.8, chloride 107, CO2 of 24, BUN 9, creatinine 0.54, glucose 99. IMPRESSION: 1. Intractable low back pain. 2. Recent lumbar laminectomy. 3. Anxiety disorder. 4. History of chronic obstructive pulmonary disease, currently stable. 5. History of migraine headaches. RECOMMENDATIONS: 1. Continue current treatment. 2. Analgesics. 3. Pain control. 4. Await ID consult. 5. Await surgical evaluation. Dictated By: GABRIELA CRABTREE MD, MA/LESLYE Conf#: [id number] DID#: [id number]
[2016-10-25] MEDS ORDERED: VANCOMYCIN 750 MG in SOD CHLORIDE 0.9% 150 ML IVPB SCH ×2
== END 2016-10-24 16:02 | disposition left against medical advice (07) | DRG 552 ==
LOC: MS1 21:09
PROVIDERS: ADMIT Internal Medicine; ATTEND Internal Medicine
DX: M54.5 Low back pain (principal); J44.9 Chronic obstructive pulmonary disease, unspecified; F41.9 Anxiety disorder, unspecified
CPT/HCPCS: 80048; 83735; 84100; 85025; 87081; J0692; J2060; J2270; J3370